=== PATIENT | female | born 1945 ===

== ENCOUNTER 2016-12-29 06:29 | Inpatient (IN) | payer MEDICARE, MEDICAID ==
[2016-12-29] MEDS ORDERED: Propofol 10 mg/ml Inj (20 ML) ONE (07:11)
[2016-12-29] MEDS ORDERED: Thrombin Topical 5,000 IU Spray Kit ONE (07:11)
[2016-12-29] MEDS ORDERED: Absorbable Gelatin Sponge Size 100 ONE (07:11)
[2016-12-29] MEDS ORDERED: Midazolam 2 MG/2 ML VIAL ONE (07:11)
[2016-12-29] MEDS ORDERED: Bacitracin Ointment 30 GM TUBE ONE (07:11)
[2016-12-29] MEDS ORDERED: ePHEDrine 50 mg/ml Inj ONE (07:11)
[2016-12-29] MEDS ORDERED: Succinylcholine 200 mg/10 ml Inj IV ONE (07:12)
[2016-12-29] MEDS ORDERED: Rocuronium 10 mg/ml (5 ml) ONE ×2 (07:12→09:41)
[2016-12-29 07:34] VITALS: BMI 29.2
[2016-12-29] MEDS ORDERED: Ropivacaine 0.5% 30ML IV ONE ×2 (07:48→07:59)
[2016-12-29] MEDS ORDERED: Lactated Ringer's 1,000 ML IV ONE ×2 (08:05→10:18)
[2016-12-29] MEDS ORDERED: Dexamethasone 4 mg/1 ml ONE (08:23)
[2016-12-29] MEDS ORDERED: Sevoflurane - Inhalation Anesthetic Liq (250 ml) ONE (08:50)
[2016-12-29] MEDS ORDERED: Neostigmine Methylsulfate 3mg/3ml Syringe IV ONE (09:52)
[2016-12-29] MEDS ORDERED: Desflurane Inhalation Anesthetic Liq (240 ml) ONE (10:30)
--- NOTE | 2016-12-29 10:57 | PCM.SURG1 ---
Surgeon's Initial Post Op Note - Surgeon's Notes Surgeon: Dr. Kat Lab Rep: Dr. Avani Gonzalez Type of Anesthesia: General Mask Anesthesia Administered By: Dr. Leyva Pre-Operative Diagnosis: Inflammatory arthritis of Left knee with cyst, anterior and posterior contracturte, lateral contracture Operative Findings: Total knee replacement from [facility]. 2-0, 3-0 vicryl, skin jak, drain Post-Operative Diagnosis: same Operation Performed: Left total knee replacement arthroplasty, curettage and bone graft, anterior and posterior capsule release, lateral patellar ligament release Specimen/Specimens Removed: none Estimated Blood Loss: EBL {In ML}: 35 Blood Products Given: N/A Drains Used: Wes Chacon Post-Op Condition: Good Date of Surgery/Procedure: 12/29/16 Time of Surgery/Procedure: 08:50
--- NOTE | 2016-12-29 11:07 | PCM.ANESB3 ---
Femoral Nerve Block - Femoral Nerve Block Date of Procedure: 12/29/16 Anesthesiologist: Autumn Pre-Procedure Diagnosis: Left Knee OA Post-Procedure Diagnosis: Left Knee OA Procedure Performed: Femoral Nerve Block Left - Procedure Femoral Nerve Block: The procedure was explained to the patient that it is for the post-operative pain management. Consent was obtained after a thorough discussion with the patient regarding the benefits and possible complications of local anesthetic block of the femoral nerve at the inguinal crease area. The patient was brought to the operating room and standard monitors were applied. Time-out was held with the circulating nurse to confirm the correct surgery and the appropriate block. After applying oxygen by nasal cannula and administering IV Sedation, patient was placed in supine position with fully extended lower extremities and the groin exposed. The femoral artery was then carefully palpated. The ultrasound transducer was then applied to this area in the transverse plane and the femoral nerve was visualized lateral to the femoral artery and underneath the fascia iliaca. After thorough identification, the inguinal crease area was prepped with Betadine solution three times and 1 % Lidocaine was injected subcutaneously for topical anesthesia. At this point, a #22 gauge Stimuplex 2-inch needle was inserted immediately lateral to the femoral artery pulse at the inguinal crease and advanced perpendicularly. The needle was inserted to the ultrasound transducer in-plane towards the femoral nerve in a [id number] direction. Needle advancement was performed carefully under direct ultrasound visualization. Nerve stimulator was used and twitch of the quadriceps muscle was obtained at current of 0.3 MA. After negative aspiration, 20 cc of 0.5% Ropivicaine was injected. Under ultrasound guidance the local anesthetics were observed spreading below fascia iliaca and around the femoral nerve. The needle was removed intact and sterile dressing was applied. The patient had stable vital signs, was conscious and in no apparent distress. The patient tolerated the femoral nerve block well with stable vital signs and was prepared for subsequent surgery.
[2016-12-29] MEDS ORDERED: Naloxone 0.4 mg/ml Inj (Adult) IVP PRN (11:10)
[2016-12-29] MEDS: HYDROmorphone 0.5 mg/0.5 ml ISec IVP PRN ×4 (11:20→12:35)
--- NOTE | 2016-12-29 12:46 | RAD ---
PROCEDURE: Left knee 12/29/2016. AP and cross-table lateral views of the left knee performed and compared with prior study dated HISTORY: Pain. COMPARISON: None. FINDINGS: BONES: Status post left total knee arthroplasty. Hardware appears intact and there is satisfactory alignment. . Expected unremarkable postoperative changes within the surrounding soft tissues including in situ drainage catheter. JOINTS: As above JOINT EFFUSION: Small suprapatellar joint effusion OTHER FINDINGS: IMPRESSION: Status post left total knee arthroplasty with satisfactory alignment and unremarkable expected surrounding postoperative changes as detailed above
[2016-12-29] MEDS: Lactated Ringer's 1,000 ML IV SCH ×2 (13:55→22:20)
[2016-12-29] MEDS: ceFAZolin 2 GM in Sodium Chloride 0.9% 100 ML IVPB SCH ×2 (17:00)
[2016-12-29] MEDS ORDERED: Patient's Own Med (Acetaminophen/Oxycodone Hydr [Percocet 10/325 Mg Tab] 1 TAB) PO PRN (18:14)
--- NOTE | 2016-12-29 19:55 | OP ---
PROCEDURE DATE: 12/29/2016 PREOPERATIVE DIAGNOSIS: Severe osteoarthritis of the left knee. POSTOPERATIVE DIAGNOSES: 1. Severe osteoarthritis of the left knee with evidence of a cyst in the lateral femoral condyle. 2. Tricompartmental osteoarthritis of the left knee. 3. Tricompartmental synovitis 4. Posterior capsular contracture. 5. Lateral patellar contracture. 6. Anterior and posterior synovitis. PROCEDURES: 1. Left total knee replacement arthroplasty. 2. Curettage and the autograft bone grafting bone cyst, lateral femoral condyle. 3. Anterior and posterior synovectomy. 4. Posterior capsular release. 5. Lateral patellar retinacular release. SURGEON: Caio Kat MD TERRAZZO JOURNEYMAN: Meghna Capone, certified registered nursing assistant to the director. SECOND MAINTENANCE DISPATCHER: Anup Gonzalez, first year podiatry resident. COMPLICATIONS: No complications. DRAINS: One Hemovac drain. OPERATIVE INDICATION: The patient is a patient who has had a primary total knee replacement and now has pain and restricted range of motion of the contralateral left knee. The patient presents with se joaquin discomfort, pain and restricted range of motion of the left knee. Possibility of mechanical lola lure, infection, thromboembolic disease, secondary or tertiary surgery is discussed. The patient has had a contralateral knee replacement arthroplasty, so she is well aware of the pros, cons, risks and benefits and insists the surgery be done as soon as possible. OPERATIVE PROCEDURE: After having obtained informed consent from the patient with a Skype log grader , after having identified side, site and procedure and a critical pause/timeout, after the satisfacto ry induction of the anesthetic, the patient correctly identified, in the supine position with all bon y prominences well padded, the left lower extremity is prepped and free draped in the usual fashion f or lower extremity surgery. Tourniquet had been applied but is not yet inflated. After exsanguinati ng the limb using a 6-inch Esmarch bandage, the tourniquet which had been applied is inflated to 350 mmHg. A midline straight 6-inch approach is made to the knee. The skin incision is carried down thr ough the skin and subcutaneous tissue. A medial arthrotomy is accomplished. The patella is everted. The knee is flexed. Dissection is carried around posteromedially to the direct head of the semimem branosis tendon. A medial and lateral meniscectomy are accomplished, anterior and posterior cruciate ligaments were excised. The initial osteotomy of the arthroplasty is accomplished on the tibial rosy e. At this point in time, computer navigation using accelerometer is accomplished. The anterior tibi al bracket is placed anteriorly. Varus, valgus, anterior and posterior supports are opened. The sty cezar is placed at the posterior insertion of the anterior cruciate ligament. At this point in time, t he offset is registered, the lateral malleolus is registered, the medial malleolus is registered, sloan us-valgus is set to 0 degrees, and anterior-posterior slope is set to 0 degrees. The tibial osteotom y is accomplished in neutral. The tibia is prepared to a #1 tibial component. Guides to rotation of the lateral aspect of the tibial condyle, mid malleolar axis, medial third of the tibial tuberosity. This having been accomplished, the proximal tibial having been prepared, attention is turned to the femur. The guidepin is placed above the intercondylar notch of the femur. The distal cutting guide is affixed and the accelerometer and the sensor placed. At this point in time the hip center is fou nd. Varus-valgus is set to 0 degrees with 0.5 degrees of flexion. This having been accomplished, th e distal depth of the cut is 9 mm. The distal femoral cutting guide is fixed in that position. The distal cut is accomplished. Anterior and posterior sizing is to a #3 femoral component. The 4-in-1 block is placed across the intercondylar axis for a #3 femoral component. The distal femoral block i s placed. Anterior and posterior femoral osteotomies were accomplished as well as chamfer cuts. At this point in time, again the posterior capsular contracture and lateral patellar contracture are not ed. The cuts having been accomplished, anterior and posterior synovectomy is now accomplished, and a t this point in time the posterior capsule is released. The lateral patellar retinaculum is released as well. There had been contractures of both the posterior capsule and the lateral patellar retinac ulum. At this point in time, trialing is accomplished with the #3 cemented femoral component, #1 jeancarlos ented tibial tray, and 15 mm polyethylene. Flexion-extension gap is found to be excellent. Attentio n is turned to the patella. The patella girth is measured at 28 mm. At this point in time, the hines lla girth is measured to 28 mm and the freehand patella osteotomy is accomplished. The patella is si zed to a 35 mm and reamed. Trialing is accomplished. The patella balance is found to be excellent. Flexion-extension balance is excellent. Patellar balance is excellent. The femur, tibia, and morelos la are prepared. The wound is thoroughly irrigated. The bone is irrigated with a waterpik, and the #3 cemented femoral component is applied, #1 cemented tibial tray and the 35 mm polyethylene with a 1 5 mm polyethylene. Flexion-extension gap is balanced. Excess cement is debrided. The tourniquet is deflated. Hemostasis controlled. Closure is in layers with #2 Quill and #1 Vicryl, 1/8 inch suctio n Hemovac drain of 0 Quill, jak for skin. Je Curtis compression dressing and knee immobilizer were applied. Postoperative x-rays reveal excellent position of the construct. Caio Kat MD cc: [id number] TT: 12/29/2016 19:55:07 cecilia
[2016-12-29] MEDS ORDERED: Alum-Mag Hydrox-Simethicone Susp (30 mL) PO PRN (20:31)
[2016-12-29] MEDS ORDERED: Patient's Own Med (Zolpidem [Ambien] 10 MG) PO SCH (22:00)
[2016-12-29] MEDS: Oxycodone/Acetaminophen 5/325 mg Tab PO PRN (22:16)
[2016-12-30] MEDS: ceFAZolin 2 GM in Sodium Chloride 0.9% 100 ML IVPB SCH (01:37)
[2016-12-30] MEDS: Lactated Ringer's 1,000 ML IV SCH ×3 (04:57→20:00)
[2016-12-30 06:56] LABS: BASO % 0.2 % (0.0-2.0); EOS % 0.2 % (0.0-4.0); HEMATOCRIT 27.7 % (34.0-47.0); LYMPH # 1.5 K/uL (1.0-4.3); LYMPH % 16.3 % (20.0-40.0); MEAN CORPUSCULAR HEMOGLOBIN 28.8 pg (27.0-31.0); MEAN CORPUSCULAR HGB CONC 33.8 g/dL (33.0-37.0); MEAN PLATELET VOLUME 9.4 fl (7.2-11.7); MONO # 1.1 K/uL (0.0-0.8); MONO % 11.9 % (0.0-10.0); NEUT # 6.5 K/uL (1.8-7.0); NEUT % 71.4 % (50.0-75.0); RED CELL DISTRIBUTION WIDTH 14.2 % (11.5-14.5); WHITE BLOOD COUNT 9.1 K/uL (4.8-10.8)
[2016-12-30 07:09] LABS: ALB/GLOB RATIO 1.3 (1.0-2.1); ALKALINE PHOSPHATASE 48 U/L (38-126); ALT/SGPT 26 U/L (9-52); AST/SGOT 22 U/L (14-36); BILIRUBIN,TOTAL 0.3 mg/dl (0.2-1.3); BLOOD UREA NITROGEN 8 mg/dl (7-17); CALCIUM 8.8 mg/dL (8.4-10.2); CARBON DIOXIDE 28 mmol/L (22-30); CHLORIDE 103 mmol/L (98-107); GFR AFRICAN-AMERICAN > 60; GLUCOSE,RANDOM 101 mg/dL (65-105); POTASSIUM 4.3 MMOL/L (3.6-5.0); SODIUM 140 mmol/l (132-148); TOTAL PROTEIN 5.7 G/DL (6.3-8.2)
--- NOTE | 2016-12-30 07:33 | CP.PCM.PN ---
Subjective - Date & Time of Evaluation Date of Evaluation: 12/30/16 Time of Evaluation: 07:30 - Subjective Subjective: S- pt with miinmla post op incisional discomfort Objective - Vital Signs/Intake and Output Vital Signs (last 24 hours): Temp Pulse Resp BP Pulse Ox 99 F 94 H 18 107/62 96 12/30/16 00:55 12/30/16 00:55 12/30/16 00:55 12/30/16 00:55 12/30/16 00:55 - Medications Medications: Current Medications Al Hydrox/Mg Hydrox/Simethicone (Maalox Plus 30 Ml) 30 ml PO Q4 PRN PRN Reason: Indigestion / Heartburn Last Admin: 12/29/16 22:16 Dose: 30 ml Aspirin (Ecotrin) 81 mg PO DAILY [facility] Calcium/Vitamin D (Oyster Shell Calcium/Vitamin D 500 Mg-200 Iu) 1 tab PO DAILY [facility] Clonazepam (Klonopin) 0.5 mg PO DAILY [facility] Docusate Sodium (Colace) 100 mg PO TID [facility] Enoxaparin Sodium (Lovenox) 40 mg SC DAILY [facility] PRN Reason: Protocol Ergocalciferol (Drisdol 50,000 Intl Units Cap) 1 cap PO QWK [facility] Ferrous Sulfate (Feosol) 325 mg PO DAILY [facility] Home Med (Tizanidine Hcl [Zanaflex]) 4 mg PO PRN PRN PRN Reason: pain. Hydromorphone HCl (Dilaudid 0.2 Mg/Ml Pet Ambassador) 0 mg IV PRN PRN; Protocol PRN Reason: Pain, moderate (4-7) Last Admin: 12/29/16 23:53 Dose: 6 mg Lactated Ringer's (Lactated Ringer's) 1,000 mls @ 125 mls/hr IV .Q8H [facility] Last Admin: 12/30/16 04:57 Dose: Not Given Naloxone HCl (Narcan) 0.1 mg IVP Q2M PRN PRN Reason: Opiate reversal Hfuld-8-Gaxu Ethyl Esters (Lovaza) 1 gm PO DAILY [facility] Oxybutynin Chloride (Ditropan Tab) 5 mg PO DAILY PRN PRN Reason: Urgent Urination Oxycodone/Acetaminophen (Percocet 5/325 Mg Tab) 1 tab PO Q4 PRN PRN Reason: Pain, moderate (4-7) Stop: 01/01/17 20:32 Last Admin: 12/29/16 22:16 Dose: 1 tab Pantoprazole Sodium (Protonix Ec Tab) 40 mg PO DAILY [facility] Rivastigmine (Exelon 9.5 Mg/24 Hr Patch) 1 patch TD DAILY [facility] Zolpidem Tartrate (Ambien) 5 mg PO HS [facility] Last Admin: 12/29/16 22:16 Dose: 5 mg - Labs Labs: 12/30/16 05:20 12/30/16 05:20 - Additional Findings Additional findings: ObjectiveMusculoskeletal stance/gait- defrred Knee dressing dry and intact N/CV intact no gross deficits orthopedically stable Assessment and Plan - Assessment and Plan (Free Text) Assessment: A- s/p successful TKR (R) P- full weight bearing CPM
[2016-12-30] MEDS ORDERED: Ergocalciferol 50,000 Intl Units Cap PO SCH (09:00)
[2016-12-30] MEDS: Oxycodone/Acetaminophen 5/325 mg Tab PO PRN ×3 (09:03→17:53)
[2016-12-30] MEDS: Pantoprazole 40 mg EC Tab PO SCH (09:36)
[2016-12-30] MEDS: Omega-3-Acid Ethyl Esters 1 GM Cap PO SCH (09:37)
[2016-12-30] MEDS: Enoxaparin 40 mg Syringe SC SCH (09:37)
[2016-12-30] MEDS: Calcium-Vit D 500 mg-200 Units Tab UD PO SCH (09:37)
[2016-12-30] MEDS ORDERED: Oxycodone/Acetaminophen 5/325 mg Tab PO PRN (09:46)
--- NOTE | 2016-12-30 14:35 | CP.PCM.PN ---
Objective - Vital Signs/Intake and Output Vital Signs (last 24 hours): Temp Pulse Resp BP Pulse Ox 98.8 F 82 20 116/78 100 12/30/16 08:14 12/30/16 08:14 12/30/16 08:14 12/30/16 08:14 12/30/16 08:14 - Medications Medications: Current Medications Al Hydrox/Mg Hydrox/Simethicone (Maalox Plus 30 Ml) 30 ml PO Q4 PRN PRN Reason: Indigestion / Heartburn Last Admin: 12/29/16 22:16 Dose: 30 ml Aspirin (Ecotrin) 81 mg PO DAILY [facility] Last Admin: 12/30/16 09:36 Dose: 81 mg Calcium/Vitamin D (Oyster Shell Calcium/Vitamin D 500 Mg-200 Iu) 1 tab PO DAILY [facility] Last Admin: 12/30/16 09:37 Dose: 1 tab Clonazepam (Klonopin) 0.5 mg PO DAILY [facility] Last Admin: 12/30/16 09:41 Dose: 0.5 mg Docusate Sodium (Colace) 100 mg PO TID [facility] Last Admin: 12/30/16 13:03 Dose: 100 mg Enoxaparin Sodium (Lovenox) 40 mg SC DAILY [facility] PRN Reason: Protocol Last Admin: 12/30/16 09:37 Dose: 40 mg Ergocalciferol (Drisdol 50,000 Intl Units Cap) 1 cap PO QWK [facility] Ferrous Sulfate (Feosol) 325 mg PO DAILY [facility] Last Admin: 12/30/16 09:37 Dose: 325 mg Lactated Ringer's (Lactated Ringer's) 1,000 mls @ 125 mls/hr IV .Q8H [facility] Last Admin: 12/30/16 12:56 Dose: Not Given Naloxone HCl (Narcan) 0.1 mg IVP Q2M PRN PRN Reason: Opiate reversal Kpjxw-9-Ffrp Ethyl Esters (Lovaza) 1 gm PO DAILY [facility] Last Admin: 12/30/16 09:37 Dose: 1 gm Oxybutynin Chloride (Ditropan Tab) 5 mg PO BID [facility] Oxycodone/Acetaminophen (Percocet 5/325 Mg Tab) 2 tab PO Q4 PRN PRN Reason: Pain, severe (8-10) Stop: 01/02/17 09:47 Last Admin: 12/30/16 13:21 Dose: 2 tab Oxycodone/Acetaminophen (Percocet 5/325 Mg Tab) 1 tab PO Q4 PRN PRN Reason: Pain, moderate (4-7) Stop: 01/01/17 20:32 Pantoprazole Sodium (Protonix Ec Tab) 40 mg PO DAILY [facility] Last Admin: 12/30/16 09:36 Dose: 40 mg Rivastigmine (Exelon 9.5 Mg/24 Hr Patch) 1 patch TD DAILY [facility] Last Admin: 12/30/16 09:37 Dose: 1 patch Tizanidine HCl (Zanaflex) 4 mg PO TID [facility] Last Admin: 12/30/16 13:03 Dose: 4 mg Zolpidem Tartrate (Ambien) 5 mg PO HS [facility] Last Admin: 12/29/16 22:16 Dose: 5 mg - Labs Labs: 12/30/16 05:20 12/30/16 05:20
--- NOTE | 2016-12-30 15:16 | CP.PCM.HP ---
History of Present Illness - History of Present Illness History of Present Illness: S/P L TKR POD # 1 71 y/o F, admitted to [facility] [place] to have L TKR Arthrosplasty on 12/29/16 in AM. On admission Pt was c/o of moderate to severe of L knee pain, constant, intensity 8:10 with no relief, associated to severe O/A L knee with cyst in the lateral femoral condyle. Worsening symptoms: Muscle weakness, Hx of O/A. Pt denied: Fever, chills, n/v/d, abdominal pain, CP,palpitation, SOB, cough, sick contact. PMHx: R TKR 08/2016, HTN, O/A, chronic Back pain, muscles weakness, Gastritis , Reflux, Dyslipidemia, Anxiety, depression. Knee X-Ray shows: S/P L knee Arthrosplasty with satisfactory alignment. Present on Admission - Present on Admission Any Indicators Present on Admission: No Review of Systems - Constitutional Constitutional: Weakness - EENT Eyes: Other (negative) Ears: Other (negative) Nose/Mouth/Throat: Other (negative) - Cardiovascular Cardiovascular: Other (negative) - Respiratory Respiratory: Other (negative) - Gastrointestinal Gastrointestinal: Dyspepsia - Genitourinary Genitourinary: Other (negative) - Musculoskeletal Musculoskeletal: Arthralgias, Back Pain, Muscle Weakness, Other (L knee pain) - Integumentary Integumentary: Other (negative) - Neurological Neurological: Other (negative) - Psychiatric Psychiatric: Anxiety, Depression - Endocrine Endocrine: Other (negative) - Hematologic/Lymphatic Hematologic: Other (negative) Past Patient History - Infectious Disease Hx of Infectious Diseases: None - Past Medical History & Family History Past Medical History?: Yes Pertinent Family History: Unknown - Past Social History Smoking Status: Never Smoked Alcohol: None Drugs: Denies Home Situation {Lives}: Alone - CARDIAC Hx Cardiac Disorders: Yes Hx Angina: No Hx Congestive Heart Failure: No Hx Heart Attack: No Hx Hypercholesterolemia: No Hx Hypertension: No Hx Pacemaker: No Hx Peripheral Vascular Disease: No - PULMONARY Hx Respiratory Disorders: No Hx Asthma: No Hx Chronic Obstructive Pulmonary Disease (COPD): No - NEUROLOGICAL Hx Neurological Disorder: Yes Hx Dementia: Yes Hx Seizures: No - HEENT Hx HEENT Problems: No - RENAL Hx Chronic Kidney Disease: No - ENDOCRINE/METABOLIC Hx Endocrine Disorders: No - HEMATOLOGICAL/ONCOLOGICAL Hx Blood Disorders: No Hx AIDS: No Hx Human Immunodeficiency Virus (HIV): No - INTEGUMENTARY Hx Dermatological Problems: No - MUSCULOSKELETAL/RHEUMATOLOGICAL Hx Musculoskeletal Disorders: Yes Hx Arthritis: Yes Hx Back Pain: Yes Hx Falls: No Hx Osteoarthritis: Yes Hx Osteoporosis: Yes Hx Unsteady Gait: Yes (pt uses walker) Other/Comment: MUSCLE WEAKNESS .LIMITED JOINT MOTION - GASTROINTESTINAL Hx Gastrointestinal Disorders: Yes Hx Gastritis: Yes Hx Gastroesophageal Reflux: Yes - GENITOURINARY/GYNECOLOGICAL Hx Genitourinary Disorders: No - PSYCHIATRIC Hx Psychophysiologic Disorder: Yes (Insomnia) Hx Emotional Abuse: No Hx Physical Abuse: No - SURGICAL HISTORY Hx Surgeries: Yes Hx Cataract Extraction: Yes Hx Cardiac Catheterization: No Hx Coronary Artery Bypass Graft: No Hx Eye Surgery: Yes (O.U) Hx Hysterectomy: Yes Hx Joint Replacement: Yes (RIGHT TKR 09/22/16) Hx Musculoskeletal Surgery: Yes (Left knee sx) Hx Orthopedic Surgery: Yes (RTKR) Other/Comment: Hx cyst excision left forearm. RTKR - ANESTHESIA Hx Anesthesia: Yes Hx Anesthesia Reactions: No Hx Malignant Hyperthermia: No Has any member of the family had a problem w/ anesthesia?: No Meds Allergies/Adverse Reactions: Allergies Allergy/AdvReac Type Severity Reaction Status Date / Time No Known Allergies Allergy Verified 12/08/16 08:12 Physical Exam - Constitutional Appears: No Acute Distress - Head Exam Head Exam: NORMAL INSPECTION - Eye Exam Eye Exam: PERRL - ENT Exam ENT Exam: Normal Oropharynx - Neck Exam Neck exam: Positive for: Normal Inspection - Respiratory Exam Respiratory Exam: NORMAL BREATHING PATTERN - Cardiovascular Exam Cardiovascular Exam: REGULAR RHYTHM - GI/Abdominal Exam GI & Abdominal Exam: Normal Bowel Sounds, Soft - Extremities Exam Additional comments: L knee s/p TKR POD # 1, L knee dressing with serosanguineous drainage. - Back Exam Back exam: NORMAL INSPECTION - Neurological Exam Neurological exam: Alert, Oriented x3 - Psychiatric Exam Psychiatric exam: Anxious, Depressed - Skin Skin Exam: Warm Results - Vital Signs Recent Vital Signs: Last Vital Signs Temp 98.8 F 12/30/16 08:14 Pulse 82 12/30/16 08:14 Resp 20 12/30/16 08:14 BP 116/78 12/30/16 08:14 Pulse Ox 100 12/30/16 08:14 reviewed J.P. - Labs Result Diagrams: 12/31/16 05:25 12/31/16 05:25 Labs: Laboratory Results - last 24 hr 12/30/16 12/30/16 05:20 05:20 WBC 9.1 RBC 3.26 L Hgb 9.4 L D Hct 27.7 L MCV 85.0 MCH 28.8 MCHC 33.8 RDW 14.2 Plt Count 192 MPV 9.4 Neut % (Auto) 71.4 Lymph % (Auto) 16.3 L Seminole % (Auto) 11.9 H Eos % (Auto) 0.2 Baso % (Auto) 0.2 Neut # 6.5 Lymph # 1.5 Seminole # 1.1 H Eos # 0.0 Baso # 0.0 Sodium 140 Potassium 4.3 Chloride 103 Carbon Dioxide 28 Anion Gap 13 BUN 8 Creatinine 0.4 L Est GFR ( Amer) > 60 Est GFR (Non-Af Amer) > 60 Random Glucose 101 Calcium 8.8 Total Bilirubin 0.3 AST 22 ALT 26 Alkaline Phosphatase 48 Total Protein 5.7 L Albumin 3.3 L D Globulin 2.5 Albumin/Globulin Ratio 1.3 reviewed j.P. - Impressions Impression: L knee X-Ray Reviewed J.P. Assessment & Plan (1) Status post total knee replacement, left Status: Acute Priority: High (2) Postoperative pain, acute, knee Status: Acute (3) Esophageal reflux Status: Acute (4) HLD (hyperlipidemia) Status: Chronic (5) Osteoporosis Status: Chronic (6) Anxious depression Status: Chronic (7) DVT prophylaxis Status: Acute (8) Anemia Status: Acute - Assessment and Plan (Free Text) Plan: Continue Dilaudid,Lovenox, Protonix and rest of tx. - Date & Time Date: 12/30/16 Time: 10:00
[2016-12-31] MEDS: Lactated Ringer's 1,000 ML IV SCH (04:05)
[2016-12-31 07:01] LABS: HEMATOCRIT 27.6 % (34.0-47.0); MEAN CELL VOLUME 85.8 fl (81.0-99.0); MEAN CORPUSCULAR HEMOGLOBIN 27.3 pg (27.0-31.0); MEAN CORPUSCULAR HGB CONC 31.8 g/dL (33.0-37.0); RED CELL DISTRIBUTION WIDTH 14.8 % (11.5-14.5); WHITE BLOOD COUNT 12.6 K/uL (4.8-10.8)
[2016-12-31 07:02] LABS: BLOOD UREA NITROGEN 9 mg/dl (7-17); CALCIUM 8.9 mg/dL (8.4-10.2); CARBON DIOXIDE 28 mmol/L (22-30); CHLORIDE 101 mmol/L (98-107); GFR AFRICAN-AMERICAN > 60; GLUCOSE,RANDOM 116 mg/dL (65-105); SODIUM 138 mmol/l (132-148)
--- NOTE | 2016-12-31 07:20 | PQF GENQUE ---
This form is a permanent part of the medical record 12/31/16 Dr. Sanchez, Would you please clarify if there is an associated diagnosis to go along with the following lab findings: H&H 9.4/27.7 , MCV and MCH normal postoperative. Received 1,100 ml intraoperative. EBL 35 cc. Treatment includes IVF. Clarification of your documentation is requested to better reflect the severity of illness and intensity of treatment of your patient. PHYSICIAN'S RESPONSE Based on your medical judgment of the clinical indicators outlined above please clarify the following: [] Practitioner response [] If unable to determine, please check the box, sign and date. Present On Admission (POA) Indicator: [] Present at the time of admission [] Not present at the time of admission [] Clinically Undetermined In responding to this query, please exercise your independent professional judgment. The fact that a question is asked does not imply that any particular answer is desired or expected. Thank you for your clarification on this documentation. If you have any questions please call: extension [phone] * Thank you, Lisa Guardado RN [facility]
[2016-12-31] MEDS: Omega-3-Acid Ethyl Esters 1 GM Cap PO SCH (09:13)
[2016-12-31] MEDS: Calcium-Vit D 500 mg-200 Units Tab UD PO SCH (09:14)
[2016-12-31] MEDS: Enoxaparin 40 mg Syringe SC SCH (09:14)
[2016-12-31] MEDS: Pantoprazole 40 mg EC Tab PO SCH (09:15)
[2016-12-31] MEDS: Oxycodone/Acetaminophen 5/325 mg Tab PO PRN ×2 (10:45→21:01)
--- NOTE | 2016-12-31 14:55 | CP.PCM.PN ---
Subjective - Date & Time of Evaluation Date of Evaluation: 12/31/16 Time of Evaluation: 12:25 - Subjective Subjective: S/P L TKR Pt S/P L TKR, pain L knee. Objective - Vital Signs/Intake and Output Vital Signs (last 24 hours): Temp Pulse Resp BP Pulse Ox 99.1 F 91 H 20 124/64 94 L 12/31/16 08:05 12/31/16 08:05 12/31/16 08:05 12/31/16 08:05 12/31/16 08:05 - Medications Medications: Current Medications Al Hydrox/Mg Hydrox/Simethicone (Maalox Plus 30 Ml) 30 ml PO Q4 PRN PRN Reason: Indigestion / Heartburn Last Admin: 12/29/16 22:16 Dose: 30 ml Aspirin (Ecotrin) 81 mg PO DAILY [facility] Last Admin: 12/31/16 09:12 Dose: 81 mg Calcium/Vitamin D (Oyster Shell Calcium/Vitamin D 500 Mg-200 Iu) 1 tab PO DAILY [facility] Last Admin: 12/31/16 09:14 Dose: 1 tab Clonazepam (Klonopin) 0.5 mg PO DAILY [facility] Last Admin: 12/31/16 09:22 Dose: 0.5 mg Docusate Sodium (Colace) 100 mg PO TID [facility] Last Admin: 12/31/16 09:06 Dose: 100 mg Enoxaparin Sodium (Lovenox) 40 mg SC DAILY [facility] PRN Reason: Protocol Last Admin: 12/31/16 09:14 Dose: 40 mg Ergocalciferol (Drisdol 50,000 Intl Units Cap) 1 cap PO QWK [facility] Ferrous Sulfate (Feosol) 325 mg PO BID [facility] Hydromorphone HCl (Dilaudid) 1 mg IVP Q4 PRN PRN Reason: Pain, severe (8-10) Last Admin: 12/31/16 09:24 Dose: 1 mg Lactated Ringer's (Lactated Ringer's) 1,000 mls @ 125 mls/hr IV .Q8H [facility] Last Admin: 12/31/16 04:05 Dose: Not Given Naloxone HCl (Narcan) 0.1 mg IVP Q2M PRN PRN Reason: Opiate reversal Djusk-5-Izgw Ethyl Esters (Lovaza) 1 gm PO DAILY [facility] Last Admin: 12/31/16 09:13 Dose: 1 gm Oxybutynin Chloride (Ditropan Tab) 5 mg PO BID [facility] Last Admin: 12/31/16 09:12 Dose: 5 mg Oxycodone/Acetaminophen (Percocet 5/325 Mg Tab) 2 tab PO Q4 PRN PRN Reason: Pain, severe (8-10) Stop: 01/02/17 09:47 Last Admin: 12/31/16 10:45 Dose: 2 tab Oxycodone/Acetaminophen (Percocet 5/325 Mg Tab) 1 tab PO Q4 PRN PRN Reason: Pain, moderate (4-7) Stop: 01/01/17 20:32 Pantoprazole Sodium (Protonix Ec Tab) 40 mg PO DAILY [facility] Last Admin: 12/31/16 09:15 Dose: 40 mg Rivastigmine (Exelon 9.5 Mg/24 Hr Patch) 1 patch TD DAILY [facility] Last Admin: 12/31/16 09:13 Dose: 1 patch Tizanidine HCl (Zanaflex) 4 mg PO TID [facility] Last Admin: 12/31/16 09:15 Dose: 4 mg Zolpidem Tartrate (Ambien) 5 mg PO HS [facility] Last Admin: 12/30/16 22:50 Dose: 5 mg - Labs Labs: 12/31/16 05:25 12/31/16 05:25 - Constitutional Appears: No Acute Distress - Head Exam Head Exam: NORMAL INSPECTION - Eye Exam Eye Exam: PERRL - ENT Exam ENT Exam: Normal Oropharynx - Neck Exam Neck Exam: Normal Inspection - Respiratory Exam Respiratory Exam: NORMAL BREATHING PATTERN - Cardiovascular Exam Cardiovascular Exam: REGULAR RHYTHM - GI/Abdominal Exam GI & Abdominal Exam: Soft, Normal Bowel Sounds - Extremities Exam Additional comments: S/P L TkR , dressing in place no drainage , tenderness to palpation - Back Exam Back Exam: NORMAL INSPECTION - Neurological Exam Neurological Exam: Alert, Oriented x3 - Psychiatric Exam Psychiatric exam: Anxious, Depressed - Skin Skin Exam: Warm Assessment and Plan (1) Status post total knee replacement, left Status: Acute (2) Postoperative pain, acute, knee Status: Acute (3) Esophageal reflux Status: Acute (4) HLD (hyperlipidemia) Status: Chronic (5) Osteoporosis Status: Chronic (6) Anxious depression Status: Chronic (7) DVT prophylaxis Status: Acute (8) Anemia Status: Acute - Assessment and Plan (Free Text) Plan: Continue Dilaudid, Percocet, Lovenox and rest of Tx , f/u Hgb
[2017-01-01 06:52] LABS: HEMATOCRIT 23.9 % (34.0-47.0); MEAN CELL VOLUME 84.9 fl (81.0-99.0); MEAN CORPUSCULAR HEMOGLOBIN 28.5 pg (27.0-31.0); MEAN CORPUSCULAR HGB CONC 33.6 g/dL (33.0-37.0); RED CELL DISTRIBUTION WIDTH 14.6 % (11.5-14.5); WHITE BLOOD COUNT 10.8 K/uL (4.8-10.8)
[2017-01-01] MEDS ORDERED: EPOETIN ALFA 10,000 UNIT/ML ML SC ONE (09:30)
[2017-01-01] MEDS ORDERED: Sodium Chloride 0.9% 1,000 ML IV SCH (09:30)
[2017-01-01] MEDS: Enoxaparin 40 mg Syringe SC SCH (10:26)
[2017-01-01] MEDS: Omega-3-Acid Ethyl Esters 1 GM Cap PO SCH (10:26)
[2017-01-01] MEDS: Calcium-Vit D 500 mg-200 Units Tab UD PO SCH (10:27)
[2017-01-01] MEDS: Pantoprazole 40 mg EC Tab PO SCH (10:27)
[2017-01-01 12:04] LABS: HEMATOCRIT 22.6 % (34.0-47.0); MEAN CELL VOLUME 84.7 fl (81.0-99.0); MEAN CORPUSCULAR HEMOGLOBIN 28.7 pg (27.0-31.0); MEAN CORPUSCULAR HGB CONC 33.9 g/dL (33.0-37.0); RED CELL DISTRIBUTION WIDTH 14.3 % (11.5-14.5)
[2017-01-01 12:13] LABS: BLOOD UREA NITROGEN 11 mg/dl (7-17); CALCIUM 8.4 mg/dL (8.4-10.2); CARBON DIOXIDE 28 mmol/L (22-30); CHLORIDE 102 mmol/L (98-107); GFR AFRICAN-AMERICAN > 60; GLUCOSE,RANDOM 117 mg/dL (65-105); SODIUM 136 mmol/l (132-148)
[2017-01-01 12:30] LABS: IRON 10 ug/dL (37-170)
[2017-01-01] MEDS ORDERED: Benzocaine/Menthol (Cepacol) Lozenge PO PRN (15:30)
--- NOTE | 2017-01-01 17:11 | CP.PCM.PN ---
Subjective - Date & Time of Evaluation Date of Evaluation: 01/01/17 Time of Evaluation: 12:30 - Subjective Subjective: F/U L TKR Less pain L knee Objective - Vital Signs/Intake and Output Vital Signs (last 24 hours): Temp Pulse Resp BP Pulse Ox 98.5 F 67 20 84/56 L 97 01/01/17 12:47 01/01/17 12:47 01/01/17 12:47 01/01/17 12:47 01/01/17 12:47 - Medications Medications: Current Medications Al Hydrox/Mg Hydrox/Simethicone (Maalox Plus 30 Ml) 30 ml PO Q4 PRN PRN Reason: Indigestion / Heartburn Last Admin: 12/29/16 22:16 Dose: 30 ml Aspirin (Ecotrin) 81 mg PO DAILY [facility] Last Admin: 01/01/17 10:26 Dose: 81 mg Benzocaine/Menthol (Cepacol Sore Throat) 1 matt PO Q4 PRN PRN Reason: Sore Throat Last Admin: 01/01/17 16:33 Dose: 1 matt Calcium/Vitamin D (Oyster Shell Calcium/Vitamin D 500 Mg-200 Iu) 1 tab PO DAILY [facility] Last Admin: 01/01/17 10:27 Dose: 1 tab Clonazepam (Klonopin) 0.5 mg PO DAILY [facility] Last Admin: 01/01/17 10:37 Dose: 0.5 mg Docusate Sodium (Colace) 100 mg PO TID [facility] Last Admin: 01/01/17 16:41 Dose: 100 mg Enoxaparin Sodium (Lovenox) 40 mg SC DAILY [facility] PRN Reason: Protocol Last Admin: 01/01/17 10:26 Dose: 40 mg Epoetin Osito (Procrit) 10,000 unit SC MWF [facility] Ergocalciferol (Drisdol 50,000 Intl Units Cap) 1 cap PO QWK [facility] Last Admin: 01/01/17 10:27 Dose: 1 cap Ferrous Sulfate (Feosol) 325 mg PO BID [facility] Last Admin: 01/01/17 16:42 Dose: 325 mg Hydromorphone HCl (Dilaudid) 1 mg IVP Q4 PRN PRN Reason: Pain, severe (8-10) Last Admin: 12/31/16 16:48 Dose: 1 mg Sodium Chloride (Sodium Chloride 0.9%) 1,000 mls @ 75 mls/hr IV .[id number] [facility] Stop: 01/02/17 09:30 Last Admin: 01/01/17 10:04 Dose: 75 mls/hr Naloxone HCl (Narcan) 0.1 mg IVP Q2M PRN PRN Reason: Opiate reversal [id number] Ethyl Esters (Lovaza) 1 gm PO DAILY [facility] Last Admin: 01/01/17 10:26 Dose: 1 gm Oxybutynin Chloride (Ditropan Tab) 5 mg PO BID [facility] Last Admin: 01/01/17 16:42 Dose: 5 mg Oxycodone/Acetaminophen (Percocet 5/325 Mg Tab) 2 tab PO Q4 PRN PRN Reason: Pain, severe (8-10) Stop: 01/02/17 09:47 Last Admin: 12/31/16 10:45 Dose: 2 tab Oxycodone/Acetaminophen (Percocet 5/325 Mg Tab) 1 tab PO Q4 PRN PRN Reason: Pain, moderate (4-7) Stop: 01/01/17 20:32 Last Admin: 12/31/16 21:01 Dose: 1 tab Pantoprazole Sodium (Protonix Ec Tab) 40 mg PO DAILY [facility] Last Admin: 01/01/17 10:27 Dose: 40 mg Rivastigmine (Exelon 9.5 Mg/24 Hr Patch) 1 patch TD DAILY [facility] Last Admin: 01/01/17 10:25 Dose: 1 patch Tizanidine HCl (Zanaflex) 4 mg PO TID [facility] Last Admin: 01/01/17 13:59 Dose: 4 mg Zolpidem Tartrate (Ambien) 5 mg PO HS [facility] Last Admin: 12/31/16 21:02 Dose: 5 mg - Labs Labs: 01/01/17 11:30 01/01/17 11:30 - Constitutional Appears: No Acute Distress - Head Exam Head Exam: NORMAL INSPECTION - Eye Exam Eye Exam: PERRL - ENT Exam ENT Exam: Normal Oropharynx - Neck Exam Neck Exam: Normal Inspection - Respiratory Exam Respiratory Exam: NORMAL BREATHING PATTERN - Cardiovascular Exam Cardiovascular Exam: REGULAR RHYTHM - GI/Abdominal Exam GI & Abdominal Exam: Soft, Normal Bowel Sounds - Extremities Exam Additional comments: S/P L TKR, dressing in place, no drainage, tenderness on palpation , neuromuscular status distal good - Back Exam Back Exam: NORMAL INSPECTION - Neurological Exam Neurological Exam: Altered, Oriented x3 - Psychiatric Exam Psychiatric exam: Anxious, Depressed - Skin Skin Exam: Warm Assessment and Plan (1) Status post total knee replacement, left Status: Acute (2) Postoperative pain, acute, knee Status: Acute (3) Esophageal reflux Status: Acute (4) HLD (hyperlipidemia) Status: Chronic (5) Osteoporosis Status: Chronic (6) Anxious depression Status: Chronic (7) DVT prophylaxis Status: Acute (8) Anemia Status: Acute - Assessment and Plan (Free Text) Plan: Hgb 7.7 , to have transfusion 2 U PRBC , Epogen , Feosol , continue Dilaudid , Percocet , PT
[2017-01-01 18:29] LABS: FOLATE 7.9 ng/mL
[2017-01-01] MEDS: Oxycodone/Acetaminophen 5/325 mg Tab PO PRN (19:34)
[2017-01-01] MEDS ORDERED: HYDROmorphone 0.5 mg/0.5 ml ISec IVP PRN (21:41)
[2017-01-02] MEDS: Oxycodone/Acetaminophen 5/325 mg Tab PO PRN ×3 (00:20→12:14)
[2017-01-02 04:27] VITALS: RESP 20; O2SAT 98
[2017-01-02 08:33] VITALS: BP 117/69; PULSE 70; TEMP 99
[2017-01-02] MEDS: Omega-3-Acid Ethyl Esters 1 GM Cap PO SCH (08:59)
[2017-01-02] MEDS: Enoxaparin 40 mg Syringe SC SCH (08:59)
[2017-01-02] MEDS: Calcium-Vit D 500 mg-200 Units Tab UD PO SCH (09:00)
[2017-01-02] MEDS: Pantoprazole 40 mg EC Tab PO SCH (09:00)
[2017-01-02] MEDS ORDERED: EPOETIN ALFA 10,000 UNIT/ML ML SC SCH (09:00)
[2017-01-02 09:08] LABS: HEMATOCRIT 33.9 % (34.0-47.0); MEAN CELL VOLUME 86.4 fl (81.0-99.0); MEAN CORPUSCULAR HEMOGLOBIN 28.7 pg (27.0-31.0); MEAN CORPUSCULAR HGB CONC 33.2 g/dL (33.0-37.0); RED CELL DISTRIBUTION WIDTH 15.2 % (11.5-14.5); WHITE BLOOD COUNT 9.1 K/uL (4.8-10.8)
[2017-01-02 09:34] LABS: BLOOD UREA NITROGEN 7 mg/dl (7-17); CALCIUM 8.6 mg/dL (8.4-10.2); CARBON DIOXIDE 25 mmol/L (22-30); CHLORIDE 107 mmol/L (98-107); GFR AFRICAN-AMERICAN > 60; GLUCOSE,RANDOM 120 mg/dL (65-105); POTASSIUM 3.3 MMOL/L (3.6-5.0); SODIUM 141 mmol/l (132-148)
[2017-01-02] MEDS ORDERED: Potassium Chloride 20 mEq ER Tab PO ONE (11:30)
--- NOTE | 2017-01-02 14:51 | CP.PCM.PN ---
Subjective - Date & Time of Evaluation Date of Evaluation: 01/02/17 Time of Evaluation: 12:00 - Subjective Subjective: F/U L TKR Less pain in L knee, with the help of Therapist and walker ambulating back to the bathroom. Objective - Vital Signs/Intake and Output Vital Signs (last 24 hours): Temp Pulse Resp BP Pulse Ox 99 F 70 20 117/69 98 01/02/17 08:32 01/02/17 08:32 01/02/17 08:32 01/02/17 08:32 01/02/17 08:32 - Medications Medications: Current Medications Al Hydrox/Mg Hydrox/Simethicone (Maalox Plus 30 Ml) 30 ml PO Q4 PRN PRN Reason: Indigestion / Heartburn Last Admin: 12/29/16 22:16 Dose: 30 ml Aspirin (Ecotrin) 81 mg PO DAILY [facility] Last Admin: 01/02/17 08:59 Dose: 81 mg Benzocaine/Menthol (Cepacol Sore Throat) 1 matt PO Q4 PRN PRN Reason: Sore Throat Last Admin: 01/01/17 16:33 Dose: 1 matt Calcium/Vitamin D (Oyster Shell Calcium/Vitamin D 500 Mg-200 Iu) 1 tab PO DAILY [facility] Last Admin: 01/02/17 09:00 Dose: 1 tab Clonazepam (Klonopin) 0.5 mg PO DAILY [facility] Last Admin: 01/02/17 09:04 Dose: 0.5 mg Docusate Sodium (Colace) 100 mg PO TID [facility] Last Admin: 01/02/17 12:13 Dose: 100 mg Enoxaparin Sodium (Lovenox) 40 mg SC DAILY [facility] PRN Reason: Protocol Last Admin: 01/02/17 08:59 Dose: 40 mg Epoetin Osito (Procrit) 10,000 unit SC MWF [facility] Last Admin: 01/02/17 09:55 Dose: 10,000 unit Ergocalciferol (Drisdol 50,000 Intl Units Cap) 1 cap PO QWK [facility] Last Admin: 01/01/17 10:27 Dose: 1 cap Ferrous Sulfate (Feosol) 325 mg PO BID [facility] Last Admin: 01/02/17 08:59 Dose: 325 mg Hydromorphone HCl (Dilaudid) 1 mg IVP Q4 PRN PRN Reason: Pain, severe (8-10) Lactulose (Enulose) 20 gm PO DAILY PRN PRN Reason: Constipation Naloxone HCl (Narcan) 0.1 mg IVP Q2M PRN PRN Reason: Opiate reversal Qalas-4-Oeyq Ethyl Esters (Lovaza) 1 gm PO DAILY [facility] Last Admin: 01/02/17 08:59 Dose: 1 gm Oxybutynin Chloride (Ditropan Tab) 5 mg PO BID [facility] Last Admin: 01/02/17 08:58 Dose: 5 mg Oxycodone/Acetaminophen (Percocet 5/325 Mg Tab) 1 tab PO Q4 PRN PRN Reason: Pain, moderate (4-7) Stop: 01/04/17 21:40 Last Admin: 01/02/17 12:14 Dose: 1 tab Pantoprazole Sodium (Protonix Ec Tab) 40 mg PO DAILY [facility] Last Admin: 01/02/17 09:00 Dose: 40 mg Rivastigmine (Exelon 9.5 Mg/24 Hr Patch) 1 patch TD DAILY [facility] Last Admin: 01/02/17 08:59 Dose: 1 patch Tizanidine HCl (Zanaflex) 4 mg PO TID [facility] Last Admin: 01/02/17 12:13 Dose: 4 mg Zolpidem Tartrate (Ambien) 5 mg PO HS [facility] Last Admin: 01/02/17 00:19 Dose: 5 mg - Labs Labs: 01/02/17 08:30 01/02/17 08:30 - Constitutional Appears: No Acute Distress - Head Exam Head Exam: NORMAL INSPECTION - Eye Exam Eye Exam: PERRL - ENT Exam ENT Exam: Normal Oropharynx - Neck Exam Neck Exam: Normal Inspection - Respiratory Exam Respiratory Exam: NORMAL BREATHING PATTERN - Cardiovascular Exam Cardiovascular Exam: REGULAR RHYTHM - GI/Abdominal Exam GI & Abdominal Exam: Soft, Normal Bowel Sounds - Extremities Exam Additional comments: S/P L TKR, tenderness on palpation , dressing in place. - Back Exam Back Exam: NORMAL INSPECTION - Neurological Exam Neurological Exam: Alert, Oriented x3 - Psychiatric Exam Psychiatric exam: Anxious, Depressed - Skin Skin Exam: Warm Assessment and Plan (1) Status post total knee replacement, left Status: Acute (2) Postoperative pain, acute, knee Status: Acute (3) Esophageal reflux Status: Acute (4) HLD (hyperlipidemia) Status: Chronic (5) Osteoporosis Status: Chronic (6) Anxious depression Status: Chronic (7) DVT prophylaxis Status: Acute (8) Anemia Status: Acute - Assessment and Plan (Free Text) Plan: Pt improved and stable to be transferred to TCU to continue PT.
== END 2017-01-02 15:08 | DRG 470 ==
LOC: H.OPSURG 06:29 → H.MEDSURG1 11:03
PROVIDERS: ADMIT Internal Medicine Pulmonary Disease; ATTEND Internal Medicine Pulmonary Disease
PROC: 0SRD0J9 Replacement of Left Knee Joint with Synthetic Substitute, Cemented, Open Approach (ICD-10-PCS; principal; 2016-12-29 07:45)
PROC: 0SBD0ZZ Excision of Left Knee Joint, Open Approach (ICD-10-PCS; 2016-12-29 07:45)
PROC: 30233N1 Transfusion of Nonautologous Red Blood Cells into Peripheral Vein, Percutaneous Approach (ICD-10-PCS; 2017-01-01)
DX: M17.12 Unilateral primary osteoarthritis, left knee (principal); D64.9 Anemia, unspecified; I10 Essential (primary) hypertension; K21.9 Gastro-esophageal reflux disease without esophagitis; F41.8 Other specified anxiety disorders; E78.5 Hyperlipidemia, unspecified; M81.0 Age-related osteoporosis without current pathological fracture; M65.9 Synovitis and tenosynovitis, unspecified

== ENCOUNTER 2017-01-01 15:38 | Inpatient (IN) | payer OTHER, MEDICAID ==
[2017-01-02 15:16] VITALS: BMI 32.1
[2017-01-02] MEDS: Sodium Chloride 0.9% 1,000 ML IV SCH (15:30)
[2017-01-02] MEDS ORDERED: Ergocalciferol 50,000 Intl Units Cap PO SCH (17:00)
[2017-01-02] MEDS: Oxycodone/Acetaminophen 5/325 mg Tab PO PRN (18:37)
--- NOTE | 2017-01-02 19:45 | CP.PCM.CON ---
History of Present Illness - History of Present Illness History of Present Illness: Dr William PMR consultation on Christen Pollack, born 1945, who has been admitted to [facility]CU for post left TKR rehabilitation. She had severe left knee internal derangement and underwent a left TKR by Dr Kat. Post op she she is also without a BM x 6 days which was the same situation as her last stay when she underwent a right TKR in September. Supportive family but does live alone. + elevator building denies toxic habits. Review of Systems - Constitutional Constitutional: absent: Anorexia, Chills - Cardiovascular Cardiovascular: absent: Chest Pain - Respiratory Respiratory: absent: Cough, Dyspnea - Gastrointestinal Gastrointestinal: Constipation. absent: Cramping - Integumentary Integumentary: Other (left knee incision) - Neurological Neurological: absent: Abnormal Movements - Psychiatric Psychiatric: Anxiety Past Patient History - Infectious Disease Hx of Infectious Diseases: None - Past Medical History & Family History Past Medical History?: Yes - Past Social History Smoking Status: Never Smoked Drugs: Denies Home Situation {Lives}: Alone - CARDIAC Hx Cardiac Disorders: No Hx Angina: No Hx Congestive Heart Failure: No Hx Heart Attack: No Hx Hypercholesterolemia: No Hx Hypertension: No Hx Pacemaker: No Hx Peripheral Vascular Disease: No - PULMONARY Hx Respiratory Disorders: No Hx Asthma: No Hx Chronic Obstructive Pulmonary Disease (COPD): No - NEUROLOGICAL Hx Neurological Disorder: Yes Hx Dementia: Yes Hx Seizures: No - HEENT Hx HEENT Problems: Yes Hx Cataracts: Yes - RENAL Hx Chronic Kidney Disease: No - ENDOCRINE/METABOLIC Hx Endocrine Disorders: No - HEMATOLOGICAL/ONCOLOGICAL Hx Blood Disorders: No Hx AIDS: No Hx Human Immunodeficiency Virus (HIV): No - INTEGUMENTARY Hx Dermatological Problems: No - MUSCULOSKELETAL/RHEUMATOLOGICAL Hx Falls: No - GASTROINTESTINAL Hx Gastrointestinal Disorders: Yes Hx Gastritis: Yes Hx Gastroesophageal Reflux: Yes - GENITOURINARY/GYNECOLOGICAL Hx Genitourinary Disorders: No - PSYCHIATRIC Hx Substance Use: No - SURGICAL HISTORY Hx Surgeries: Yes Hx Cataract Extraction: Yes Hx Cardiac Catheterization: No Hx Coronary Artery Bypass Graft: No Hx Eye Surgery: Yes (O.U) Hx Hysterectomy: Yes Hx Joint Replacement: Yes (RIGHT TKR 09/22/16) Hx Musculoskeletal Surgery: Yes (Left knee sx) Hx Orthopedic Surgery: Yes (RTKR) Other/Comment: Hx cyst excision left forearm. RTKR - ANESTHESIA Hx Anesthesia: Yes Hx Anesthesia Reactions: No Hx Malignant Hyperthermia: No Meds Allergies/Adverse Reactions: Allergies Allergy/AdvReac Type Severity Reaction Status Date / Time No Known Allergies Allergy Verified 01/02/17 15:15 - Medications Medications: Current Medications Al Hydrox/Mg Hydrox/Simethicone (Maalox Plus 30 Ml) 30 ml PO Q4 PRN PRN Reason: Indigestion / Heartburn Aspirin (Ecotrin) 81 mg PO DAILY [facility] Benzocaine/Menthol (Cepacol Sore Throat) 1 matt PO Q4 PRN PRN Reason: Sore Throat Calcium/Vitamin D (Oyster Shell Calcium/Vitamin D 500 Mg-200 Iu) 1 tab PO DAILY [facility] Clonazepam (Klonopin) 0.5 mg PO DAILY [facility] Docusate Sodium (Colace) 100 mg PO TID [facility] Last Admin: 01/02/17 18:04 Dose: 100 mg Enoxaparin Sodium (Lovenox) 40 mg SC DAILY [facility] PRN Reason: Protocol Epoetin Osito (Procrit) 10,000 unit SC MWF [facility] Ergocalciferol (Drisdol 50,000 Intl Units Cap) 1 cap PO QWK [facility] Ferrous Sulfate (Feosol) 325 mg PO BID [facility] Last Admin: 01/02/17 18:04 Dose: 325 mg Sodium Chloride (Sodium Chloride 0.9%) 1,000 mls @ 80 mls/hr IV .[id number] [facility] Stop: 01/03/17 16:10 Last Admin: 01/02/17 15:30 Dose: 80 mls/hr Lactulose (Enulose) 20 gm PO DAILY PRN PRN Reason: Constipation Last Admin: 01/02/17 18:14 Dose: 20 gm Pfawq-2-Mupx Ethyl Esters (Lovaza) 1 gm PO DAILY [facility] Oxybutynin Chloride (Ditropan Tab) 5 mg PO BID [facility] Last Admin: 01/02/17 18:04 Dose: 5 mg Oxycodone/Acetaminophen (Percocet 5/325 Mg Tab) 1 tab PO Q4 PRN PRN Reason: Pain, moderate (4-7) Stop: 01/05/17 16:10 Last Admin: 01/02/17 18:37 Dose: 1 tab Oxycodone/Acetaminophen (Percocet 5/325 Mg Tab) 2 tab PO Q4 PRN PRN Reason: Pain, severe (8-10) Stop: 01/05/17 16:13 Rivastigmine (Exelon 9.5 Mg/24 Hr Patch) 1 patch TD DAILY [facility] Tizanidine HCl (Zanaflex) 4 mg PO TID [facility] Last Admin: 01/02/17 18:04 Dose: 4 mg Zolpidem Tartrate (Ambien) 5 mg PO [facility] Physical Exam - Constitutional Appears: Non-toxic, Other (uncomfortable with motion) - Eye Exam Eye Exam: EOMI, Normal appearance - ENT Exam ENT Exam: Mucous Membranes Moist - Respiratory Exam Respiratory Exam: NORMAL BREATHING PATTERN - Cardiovascular Exam Cardiovascular Exam: REGULAR RHYTHM - GI/Abdominal Exam GI & Abdominal Exam: Hyperactive Bowel Sounds. absent: Firm - Extremities Exam Extremities exam: Positive for: joint swelling (left knee) - Neurological Exam Neurological exam: Alert, CN II-XII Intact, Oriented x3 - Psychiatric Exam Psychiatric exam: Anxious Results - Vital Signs Recent Vital Signs: Last Vital Signs Temp 97.9 F 01/02/17 16:55 Pulse 56 L 01/02/17 16:55 Resp 18 01/02/17 16:55 BP 84/50 L 01/02/17 16:55 Pulse Ox 98 01/02/17 16:55 Assessment & Plan - Assessment and Plan (Free Text) Assessment: PT/OT to continue to help increase functional independence Pain: present but she is very sensitive to medications as noted on last stay. We will use physical modalities to help and ice will be ordered Vascular: no evidence of DVT, on prophylaxis GI: Constipation Patient continues to be an excellent TCU rehabilitation candidate and will have continued focused PT, OT and recreational therapy to help facilitate a safe and appropriate d/c plan
[2017-01-02] MEDS: Alum-Mag Hydrox-Simethicone Susp (30 mL) PO PRN (20:57)
[2017-01-02] MEDS ORDERED: ZOLPIDEM 5 MG PO SCH (22:00)
[2017-01-03] MEDS: Oxycodone/Acetaminophen 5/325 mg Tab PO PRN ×4 (00:10→21:20)
[2017-01-03] MEDS: Sodium Chloride 0.9% 1,000 ML IV SCH (03:36)
[2017-01-03] MEDS: Alum-Mag Hydrox-Simethicone Susp (30 mL) PO PRN ×3 (08:32→21:21)
[2017-01-03] MEDS: Calcium-Vit D 500 mg-200 Units Tab UD PO SCH (08:37)
[2017-01-03] MEDS: Omega-3-Acid Ethyl Esters 1 GM Cap PO SCH (08:37)
[2017-01-03] MEDS: Enoxaparin 40 mg Syringe SC SCH (08:37)
[2017-01-03] MEDS ORDERED: CALCIUM CARBONATE PO SCH (09:00)
[2017-01-03] MEDS ORDERED: VITAMIN D3 PO SCH (09:00)
--- NOTE | 2017-01-03 13:53 | CP.PCM.PN ---
Subjective - Date & Time of Evaluation Date of Evaluation: 01/03/17 Time of Evaluation: 13:52 - Subjective Subjective: Patient seen in room had 2 supp. with good relief and 4 bowel movements incision CDI Objective - Vital Signs/Intake and Output Vital Signs (last 24 hours): Temp Pulse Resp BP Pulse Ox 99.6 F 95 H 20 124/59 L 97 01/03/17 08:19 01/03/17 11:18 01/03/17 08:19 01/03/17 11:18 01/03/17 11:18 - Medications Medications: Current Medications Acetaminophen (Tylenol 325mg Tab) 650 mg PO Q4 PRN PRN Reason: Fever >100.4 F Al Hydrox/Mg Hydrox/Simethicone (Maalox Plus 30 Ml) 30 ml PO Q4 PRN PRN Reason: Indigestion / Heartburn Last Admin: 01/03/17 08:32 Dose: 30 ml Aspirin (Ecotrin) 81 mg PO DAILY [facility] Last Admin: 01/03/17 08:38 Dose: 81 mg Benzocaine/Menthol (Cepacol Sore Throat) 1 matt PO Q4 PRN PRN Reason: Sore Throat Calcium/Vitamin D (Oyster Shell Calcium/Vitamin D 500 Mg-200 Iu) 1 tab PO DAILY [facility] Last Admin: 01/03/17 08:37 Dose: 1 tab Clonazepam (Klonopin) 0.5 mg PO DAILY@2100 [facility] Docusate Sodium (Colace) 100 mg PO TID [facility] Last Admin: 01/03/17 12:48 Dose: 100 mg Enoxaparin Sodium (Lovenox) 40 mg SC DAILY [facility] PRN Reason: Protocol Last Admin: 01/03/17 08:37 Dose: 40 mg Epoetin Osito (Procrit) 10,000 unit SC MWF [facility] Ergocalciferol (Drisdol 50,000 Intl Units Cap) 1 cap PO QWK [facility] Ferrous Sulfate (Feosol) 325 mg PO BID [facility] Last Admin: 01/03/17 08:38 Dose: 325 mg Sodium Chloride (Sodium Chloride 0.9%) 1,000 mls @ 80 mls/hr IV .[id number] [facility] Stop: 01/03/17 16:10 Last Admin: 01/03/17 03:36 Dose: 80 mls/hr Lactulose (Enulose) 20 gm PO DAILY PRN PRN Reason: Constipation Last Admin: 01/02/17 18:14 Dose: 20 gm Wqrvf-1-Egwe Ethyl Esters (Lovaza) 1 gm PO DAILY [facility] Last Admin: 01/03/17 08:37 Dose: 1 gm Oxybutynin Chloride (Ditropan Tab) 5 mg PO BID [facility] Last Admin: 01/03/17 08:38 Dose: 5 mg Oxycodone/Acetaminophen (Percocet 5/325 Mg Tab) 1 tab PO Q4 PRN PRN Reason: Pain, moderate (4-7) Stop: 01/05/17 16:10 Last Admin: 01/03/17 00:10 Dose: 1 tab Oxycodone/Acetaminophen (Percocet 5/325 Mg Tab) 2 tab PO Q4 PRN PRN Reason: Pain, severe (8-10) Stop: 01/05/17 16:13 Last Admin: 01/03/17 08:32 Dose: 2 tab Rivastigmine (Exelon 9.5 Mg/24 Hr Patch) 1 patch TD DAILY [facility] Last Admin: 01/03/17 08:38 Dose: 1 patch Tizanidine HCl (Zanaflex) 4 mg PO TID [facility] Last Admin: 01/03/17 12:46 Dose: 4 mg Zolpidem Tartrate (Ambien) 5 mg PO HS [facility] Last Admin: 01/03/17 00:25 Dose: 5 mg
--- NOTE | 2017-01-03 14:15 | CP.PCM.HP ---
History of Present Illness - History of Present Illness History of Present Illness: 71 y/o F admitted to [facility] on 12/29/16 scheduled for OR same day for L TKR Arthrospasty 2nd to severe O/A L knee with cyst in the lateral femoral condyle. Pt underwent well the procedure and after improvement and stable, was discharged to TCU to have Physical Therapy and OT for functional independence. Pt c/o of pain in L knee, constant, moderate to severe 7:10. Present on Admission - Present on Admission Any Indicators Present on Admission: No Review of Systems - Constitutional Constitutional: Weakness - EENT Eyes: Other (negative) Ears: Other (negative) Nose/Mouth/Throat: Other (negative) - Cardiovascular Cardiovascular: Other (negative) - Respiratory Respiratory: Other (negative) - Gastrointestinal Gastrointestinal: Other (negative) - Genitourinary Genitourinary: Other (negative) - Musculoskeletal Musculoskeletal: Arthralgias, Back Pain, Joint Swelling (L knee), Muscle Weakness, Other (Pain L knee.) - Integumentary Integumentary: Wounds (L knee 2nd to TKR) - Neurological Neurological: Other (negative) - Psychiatric Psychiatric: Anxiety, Depression - Endocrine Endocrine: Other (negative) - Hematologic/Lymphatic Hematologic: Other (negative) Past Patient History - Infectious Disease Hx of Infectious Diseases: None - Past Medical History & Family History Past Medical History?: Yes Pertinent Family History: Unknown - Past Social History Smoking Status: Never Smoked Drugs: Denies Home Situation {Lives}: Alone - CARDIAC Hx Cardiac Disorders: No Hx Angina: No Hx Congestive Heart Failure: No Hx Heart Attack: No Hx Hypercholesterolemia: No Hx Hypertension: No Hx Pacemaker: No Hx Peripheral Vascular Disease: No - PULMONARY Hx Respiratory Disorders: No Hx Asthma: No Hx Chronic Obstructive Pulmonary Disease (COPD): No - NEUROLOGICAL Hx Neurological Disorder: Yes Hx Dementia: Yes Hx Seizures: No - HEENT Hx HEENT Problems: Yes Hx Cataracts: Yes - RENAL Hx Chronic Kidney Disease: No - ENDOCRINE/METABOLIC Hx Endocrine Disorders: No - HEMATOLOGICAL/ONCOLOGICAL Hx Blood Disorders: No Hx AIDS: No Hx Human Immunodeficiency Virus (HIV): No - INTEGUMENTARY Hx Dermatological Problems: No - MUSCULOSKELETAL/RHEUMATOLOGICAL Hx Falls: No - GASTROINTESTINAL Hx Gastrointestinal Disorders: Yes Hx Gastritis: Yes Hx Gastroesophageal Reflux: Yes - GENITOURINARY/GYNECOLOGICAL Hx Genitourinary Disorders: No - PSYCHIATRIC Hx Substance Use: No - SURGICAL HISTORY Hx Surgeries: Yes Hx Cataract Extraction: Yes Hx Cardiac Catheterization: No Hx Coronary Artery Bypass Graft: No Hx Eye Surgery: Yes (O.U) Hx Hysterectomy: Yes Hx Joint Replacement: Yes (RIGHT TKR 09/22/16) Hx Musculoskeletal Surgery: Yes (Left knee sx) Hx Orthopedic Surgery: Yes (RTKR) Other/Comment: Hx cyst excision left forearm. RTKR - ANESTHESIA Hx Anesthesia: Yes Hx Anesthesia Reactions: No Hx Malignant Hyperthermia: No Meds Allergies/Adverse Reactions: Allergies Allergy/AdvReac Type Severity Reaction Status Date / Time No Known Allergies Allergy Verified 01/02/17 15:15 Physical Exam - Constitutional Appears: No Acute Distress - Head Exam Head Exam: NORMAL INSPECTION - Eye Exam Eye Exam: PERRL - ENT Exam ENT Exam: Normal Oropharynx - Neck Exam Neck exam: Positive for: Normal Inspection - Respiratory Exam Respiratory Exam: NORMAL BREATHING PATTERN - Cardiovascular Exam Cardiovascular Exam: REGULAR RHYTHM - GI/Abdominal Exam GI & Abdominal Exam: Normal Bowel Sounds, Soft - Extremities Exam Additional comments: S/P L knee TKR, knee dressing in place, legs edema. - Back Exam Back exam: NORMAL INSPECTION - Neurological Exam Neurological exam: Alert, Oriented x3 - Psychiatric Exam Psychiatric exam: Anxious, Depressed - Skin Skin Exam: Warm Results - Vital Signs Recent Vital Signs: Last Vital Signs Temp 99.6 F 01/03/17 08:19 Pulse 95 H 01/03/17 11:18 Resp 20 01/03/17 08:19 BP 124/59 L 01/03/17 11:18 Pulse Ox 97 01/03/17 11:18 reviewed J.P. - Labs Labs: reviewed J.P. Assessment & Plan (1) Postoperative pain, acute, knee Status: Acute (2) Status post total knee replacement, left Status: Acute Priority: High (3) Anemia Status: Acute (4) Esophageal reflux Status: Acute (5) Anxious depression Status: Chronic (6) Osteoporosis Status: Chronic (7) HLD (hyperlipidemia) Status: Chronic (8) DVT prophylaxis Status: Acute - Assessment and Plan (Free Text) Plan: F/U OT, PT eval, Continue Lovenox, Percocet, Zanaflex, Lovaza and rest of Tx. Orthopedic and Psychiatric consult. - Date & Time Date: 01/03/17 Time: 12:00
[2017-01-03] MEDS: Benzocaine/Menthol (Cepacol) Lozenge PO PRN (15:39)
[2017-01-04] MEDS: Alum-Mag Hydrox-Simethicone Susp (30 mL) PO PRN ×3 (01:48→21:13)
[2017-01-04] MEDS: Oxycodone/Acetaminophen 5/325 mg Tab PO PRN ×4 (01:49→21:11)
[2017-01-04] MEDS: Omega-3-Acid Ethyl Esters 1 GM Cap PO SCH (09:24)
[2017-01-04] MEDS: Calcium-Vit D 500 mg-200 Units Tab UD PO SCH (09:25)
[2017-01-04] MEDS: Enoxaparin 40 mg Syringe SC SCH (09:25)
--- NOTE | 2017-01-04 17:04 | CP.PCM.PN ---
Subjective - Date & Time of Evaluation Date of Evaluation: 01/04/17 - Subjective Subjective: F/U L TKR Minimal pain in L knee now. Objective - Vital Signs/Intake and Output Vital Signs (last 24 hours): Temp Pulse Resp BP Pulse Ox 98.2 F 72 20 93/55 L 98 01/04/17 16:38 01/04/17 16:38 01/04/17 16:38 01/04/17 16:38 01/04/17 16:38 - Medications Medications: Current Medications Acetaminophen (Tylenol 325mg Tab) 650 mg PO Q4 PRN PRN Reason: Fever >100.4 F Al Hydrox/Mg Hydrox/Simethicone (Maalox Plus 30 Ml) 30 ml PO Q4 PRN PRN Reason: Indigestion / Heartburn Last Admin: 01/04/17 08:19 Dose: 30 ml Aspirin (Ecotrin) 81 mg PO DAILY [facility] Last Admin: 01/04/17 09:23 Dose: 81 mg Benzocaine/Menthol (Cepacol Sore Throat) 1 matt PO Q4 PRN PRN Reason: Sore Throat Last Admin: 01/03/17 15:39 Dose: 1 matt Calcium/Vitamin D (Oyster Shell Calcium/Vitamin D 500 Mg-200 Iu) 1 tab PO DAILY [facility] Last Admin: 01/04/17 09:25 Dose: 1 tab Clonazepam (Klonopin) 0.5 mg PO DAILY@2100 [facility] Last Admin: 01/03/17 21:19 Dose: 0.5 mg Docusate Sodium (Colace) 100 mg PO TID [facility] Last Admin: 01/04/17 16:29 Dose: 100 mg Enoxaparin Sodium (Lovenox) 40 mg SC DAILY [facility] PRN Reason: Protocol Last Admin: 01/04/17 09:25 Dose: 40 mg Epoetin Osito (Procrit) 10,000 unit SC MWF [facility] Ergocalciferol (Drisdol 50,000 Intl Units Cap) 1 cap PO QWK [facility] Ferrous Sulfate (Feosol) 325 mg PO BID [facility] Last Admin: 01/04/17 16:30 Dose: 325 mg Lactulose (Enulose) 20 gm PO DAILY PRN PRN Reason: Constipation Last Admin: 01/02/17 18:14 Dose: 20 gm [id number]-[id number] Ethyl Esters (Lovaza) 1 gm PO DAILY [facility] Last Admin: 01/04/17 09:24 Dose: 1 gm Oxybutynin Chloride (Ditropan Tab) 5 mg PO BID [facility] Last Admin: 01/04/17 09:23 Dose: 5 mg Oxycodone/Acetaminophen (Percocet 5/325 Mg Tab) 1 tab PO Q4 PRN PRN Reason: Pain, moderate (4-7) Stop: 01/05/17 16:10 Last Admin: 01/03/17 14:07 Dose: 1 tab Oxycodone/Acetaminophen (Percocet 5/325 Mg Tab) 2 tab PO Q4 PRN PRN Reason: Pain, severe (8-10) Stop: 01/05/17 16:13 Last Admin: 01/04/17 12:49 Dose: 2 tab Rivastigmine (Exelon 9.5 Mg/24 Hr Patch) 1 patch TD DAILY [facility] Last Admin: 01/04/17 09:24 Dose: 1 patch Tizanidine HCl (Zanaflex) 4 mg PO TID [facility] Last Admin: 01/04/17 16:30 Dose: 4 mg Zolpidem Tartrate (Ambien) 5 mg PO HS [facility] Last Admin: 01/03/17 22:40 Dose: 5 mg - Constitutional Appears: No Acute Distress - Head Exam Head Exam: NORMAL INSPECTION - Eye Exam Eye Exam: PERRL - ENT Exam ENT Exam: Normal Oropharynx - Neck Exam Neck Exam: Normal Inspection - Respiratory Exam Respiratory Exam: NORMAL BREATHING PATTERN - Cardiovascular Exam Cardiovascular Exam: REGULAR RHYTHM - GI/Abdominal Exam GI & Abdominal Exam: Soft, Normal Bowel Sounds - Extremities Exam Additional comments: S/P L TKR, dressing in place, legs edema. - Back Exam Back Exam: NORMAL INSPECTION - Neurological Exam Neurological Exam: Alert, Oriented x3 - Psychiatric Exam Psychiatric exam: Normal Mood - Skin Skin Exam: Warm Assessment and Plan (1) Status post total knee replacement, left Status: Acute (2) Postoperative pain, acute, knee Assessment & Plan: Improved Status: Acute (3) Anemia Status: Acute (4) Esophageal reflux Status: Acute (5) Anxious depression Status: Chronic (6) Osteoporosis Status: Chronic (7) HLD (hyperlipidemia) Status: Chronic (8) DVT prophylaxis Status: Acute - Assessment and Plan (Free Text) Plan: Continue PT, c/o of loose stool,DC Colace, continue Percocet and rest of tx.
[2017-01-05] MEDS: Oxycodone/Acetaminophen 5/325 mg Tab PO PRN ×5 (03:11→22:07)
[2017-01-05] MEDS: Alum-Mag Hydrox-Simethicone Susp (30 mL) PO PRN ×2 (03:12→06:59)
[2017-01-05] MEDS: Benzocaine/Menthol (Cepacol) Lozenge PO PRN (06:59)
[2017-01-05] MEDS: Omega-3-Acid Ethyl Esters 1 GM Cap PO SCH (09:39)
[2017-01-05] MEDS: Enoxaparin 40 mg Syringe SC SCH (09:39)
[2017-01-05] MEDS: Calcium-Vit D 500 mg-200 Units Tab UD PO SCH (09:40)
[2017-01-05] MEDS: EPOETIN ALFA 10,000 UNIT/ML ML SC SCH (09:41)
--- NOTE | 2017-01-05 17:05 | CP.PCM.PN ---
Subjective - Date & Time of Evaluation Date of Evaluation: 01/05/17 Time of Evaluation: 11:50 - Subjective Subjective: F/U L TKR Pt doing well with PT, flexion to 80 degree, less pain in L knee Objective - Vital Signs/Intake and Output Vital Signs (last 24 hours): Temp Pulse Resp BP Pulse Ox 96.8 F L 66 20 126/62 100 01/05/17 16:22 01/05/17 16:22 01/05/17 16:22 01/05/17 16:22 01/05/17 16:22 - Medications Medications: Current Medications Acetaminophen (Tylenol 325mg Tab) 650 mg PO Q4 PRN PRN Reason: Fever >100.4 F Al Hydrox/Mg Hydrox/Simethicone (Maalox Plus 30 Ml) 30 ml PO Q4 PRN PRN Reason: Indigestion / Heartburn Last Admin: 01/05/17 06:59 Dose: 30 ml Aspirin (Ecotrin) 81 mg PO DAILY [facility] Last Admin: 01/05/17 09:36 Dose: 81 mg Benzocaine/Menthol (Cepacol Sore Throat) 1 matt PO Q4 PRN PRN Reason: Sore Throat Last Admin: 01/05/17 06:59 Dose: 1 matt Calcium/Vitamin D (Oyster Shell Calcium/Vitamin D 500 Mg-200 Iu) 1 tab PO DAILY [facility] Last Admin: 01/05/17 09:40 Dose: 1 tab Clonazepam (Klonopin) 0.5 mg PO DAILY@2100 [facility] Last Admin: 01/04/17 21:12 Dose: 0.5 mg Docusate Sodium (Colace) 100 mg PO TID [facility] Last Admin: 01/05/17 16:12 Dose: 100 mg Enoxaparin Sodium (Lovenox) 40 mg SC DAILY [facility] PRN Reason: Protocol Last Admin: 01/05/17 09:39 Dose: 40 mg Epoetin Osito (Procrit) 10,000 unit SC MWF [facility] Last Admin: 01/05/17 09:41 Dose: 10,000 unit Ergocalciferol (Drisdol 50,000 Intl Units Cap) 1 cap PO QWK [facility] Ferrous Sulfate (Feosol) 325 mg PO BID [facility] Last Admin: 01/05/17 16:11 Dose: 325 mg [id number] Ethyl Esters (Lovaza) 1 gm PO DAILY [facility] Last Admin: 01/05/17 09:39 Dose: 1 gm Oxybutynin Chloride (Ditropan Tab) 5 mg PO BID [facility] Last Admin: 01/05/17 16:12 Dose: 5 mg Rivastigmine (Exelon 9.5 Mg/24 Hr Patch) 1 patch TD DAILY [facility] Last Admin: 01/05/17 09:37 Dose: 1 patch Tizanidine HCl (Zanaflex) 4 mg PO TID [facility] Last Admin: 01/05/17 13:05 Dose: 4 mg Zolpidem Tartrate (Ambien) 5 mg PO HS [facility] Last Admin: 01/04/17 21:43 Dose: 5 mg - Constitutional Appears: No Acute Distress - Head Exam Head Exam: NORMAL INSPECTION - Eye Exam Eye Exam: PERRL - ENT Exam ENT Exam: Normal Oropharynx - Neck Exam Neck Exam: Normal Inspection - Respiratory Exam Respiratory Exam: NORMAL BREATHING PATTERN - Cardiovascular Exam Cardiovascular Exam: REGULAR RHYTHM - GI/Abdominal Exam GI & Abdominal Exam: Soft, Normal Bowel Sounds - Extremities Exam Additional comments: S/P L TKR,tenderness on palpation, neuromuscular status distal good. - Back Exam Back Exam: NORMAL INSPECTION - Neurological Exam Neurological Exam: Alert, Oriented x3 - Psychiatric Exam Psychiatric exam: Anxious, Depressed - Skin Skin Exam: Warm Assessment and Plan (1) Status post total knee replacement, left Status: Acute (2) Postoperative pain, acute, knee Status: Acute (3) Anemia Status: Acute (4) Esophageal reflux Status: Acute (5) Anxious depression Status: Chronic (6) Osteoporosis Status: Chronic (7) HLD (hyperlipidemia) Status: Chronic (8) DVT prophylaxis Status: Acute - Assessment and Plan (Free Text) Plan: Continue Lovenox, Tylenol, Ecotrin and rest of Tx, PT,OT
[2017-01-05] MEDS ORDERED: Oxycodone/Acetaminophen 5/325 mg Tab PO PRN (21:53)
[2017-01-06] MEDS: Oxycodone/Acetaminophen 5/325 mg Tab PO PRN (08:49)
[2017-01-06] MEDS: Omega-3-Acid Ethyl Esters 1 GM Cap PO SCH (10:46)
[2017-01-06] MEDS: Enoxaparin 40 mg Syringe SC SCH (10:47)
[2017-01-06] MEDS: Calcium-Vit D 500 mg-200 Units Tab UD PO SCH (10:47)
[2017-01-06] MEDS ORDERED: Oxycodone/Acetaminophen 5/325 mg Tab PO PRN (11:38)
[2017-01-06] MEDS: Benzocaine/Menthol (Cepacol) Lozenge PO PRN (13:10)
--- NOTE | 2017-01-06 14:56 | CP.PCM.PN ---
Subjective - Date & Time of Evaluation Date of Evaluation: 01/06/17 Time of Evaluation: 11:30 - Subjective Subjective: F/U L TKR Pain in L knee improved, had diarrhea yesterday relieved with Imodium. Objective - Vital Signs/Intake and Output Vital Signs (last 24 hours): Temp Pulse Resp BP Pulse Ox 98.1 F 83 20 155/79 H 97 01/06/17 08:08 01/06/17 10:15 01/06/17 08:08 01/06/17 10:15 01/06/17 10:15 - Medications Medications: Current Medications Acetaminophen (Tylenol 325mg Tab) 650 mg PO Q4 PRN PRN Reason: Fever >100.4 F Al Hydrox/Mg Hydrox/Simethicone (Maalox Plus 30 Ml) 30 ml PO Q4 PRN PRN Reason: Indigestion / Heartburn Last Admin: 01/05/17 06:59 Dose: 30 ml Aspirin (Ecotrin) 81 mg PO DAILY [facility] Last Admin: 01/06/17 10:46 Dose: 81 mg Benzocaine/Menthol (Cepacol Sore Throat) 1 matt PO Q4 PRN PRN Reason: Sore Throat Last Admin: 01/06/17 13:10 Dose: 1 matt Calcium/Vitamin D (Oyster Shell Calcium/Vitamin D 500 Mg-200 Iu) 1 tab PO DAILY [facility] Last Admin: 01/06/17 10:47 Dose: 1 tab Clonazepam (Klonopin) 0.5 mg PO DAILY@2100 [facility] Last Admin: 01/05/17 22:03 Dose: 0.5 mg Docusate Sodium (Colace) 100 mg PO TID [facility] Last Admin: 01/06/17 13:09 Dose: 100 mg Epoetin Osito (Procrit) 10,000 unit SC MWF [facility] Last Admin: 01/05/17 09:41 Dose: 10,000 unit Ergocalciferol (Drisdol 50,000 Intl Units Cap) 1 cap PO QWK [facility] Ferrous Sulfate (Feosol) 325 mg PO BID [facility] Last Admin: 01/06/17 10:46 Dose: 325 mg Xoynd-[id number] Ethyl Esters (Lovaza) 1 gm PO DAILY [facility] Last Admin: 01/06/17 10:46 Dose: 1 gm Oxybutynin Chloride (Ditropan Tab) 5 mg PO BID [facility] Last Admin: 01/06/17 10:45 Dose: 5 mg Oxycodone/Acetaminophen (Percocet 5/325 Mg Tab) 1 tab PO Q4 PRN PRN Reason: Pain, moderate (4-7) Stop: 01/08/17 21:53 Last Admin: 01/06/17 08:49 Dose: 1 tab Oxycodone/Acetaminophen (Percocet 5/325 Mg Tab) 2 tab PO Q4 PRN PRN Reason: Pain, severe (8-10) Stop: 01/08/17 21:54 Oxycodone/Acetaminophen (Percocet 5/325 Mg Tab) 1 tab PO DAILY PRN PRN Reason: Pain, moderate (4-7) Stop: 01/10/17 09:01 Last Admin: 01/06/17 13:07 Dose: 1 tab Rivastigmine (Exelon 9.5 Mg/24 Hr Patch) 1 patch TD DAILY [facility] Last Admin: 01/06/17 10:46 Dose: 1 patch Tizanidine HCl (Zanaflex) 4 mg PO TID [facility] Last Admin: 01/06/17 13:09 Dose: 4 mg Zolpidem Tartrate (Ambien) 5 mg PO HS [facility] Last Admin: 01/05/17 23:00 Dose: 5 mg - Constitutional Appears: No Acute Distress - Head Exam Head Exam: NORMAL INSPECTION - Eye Exam Eye Exam: PERRL - ENT Exam ENT Exam: Normal Oropharynx - Neck Exam Neck Exam: Normal Inspection - Respiratory Exam Respiratory Exam: NORMAL BREATHING PATTERN - Cardiovascular Exam Cardiovascular Exam: REGULAR RHYTHM - GI/Abdominal Exam GI & Abdominal Exam: Soft, Normal Bowel Sounds - Extremities Exam Additional comments: S/P L TKR, tenderness on palpation, neuromuscular distal status good. - Back Exam Back Exam: NORMAL INSPECTION - Neurological Exam Neurological Exam: Alert, Oriented x3 - Psychiatric Exam Psychiatric exam: Anxious, Depressed - Skin Skin Exam: Warm Assessment and Plan (1) Status post total knee replacement, left Status: Acute (2) Postoperative pain, acute, knee Status: Acute (3) Anemia Status: Acute (4) Esophageal reflux Status: Acute (5) Anxious depression Status: Chronic (6) Osteoporosis Status: Chronic (7) HLD (hyperlipidemia) Status: Chronic (8) DVT prophylaxis Status: Acute - Assessment and Plan (Free Text) Plan: Continue Dilaudid, Lovenox and rest of Tx, PT.
[2017-01-06] MEDS ORDERED: Oxycodone/Acetaminophen 5/325 mg Tab PO ONE (16:36)
[2017-01-07 07:30] LABS: HEMATOCRIT 33.2 % (34.0-47.0); MEAN CELL VOLUME 86.8 fl (81.0-99.0); MEAN CORPUSCULAR HEMOGLOBIN 28.1 pg (27.0-31.0); MEAN CORPUSCULAR HGB CONC 32.4 g/dL (33.0-37.0); RED CELL DISTRIBUTION WIDTH 14.9 % (11.5-14.5)
[2017-01-07 07:55] LABS: BLOOD UREA NITROGEN 7 mg/dl (7-17); CALCIUM 9.1 mg/dL (8.4-10.2); CARBON DIOXIDE 25 mmol/L (22-30); CHLORIDE 105 mmol/L (98-107); GFR AFRICAN-AMERICAN > 60; GLUCOSE,RANDOM 104 mg/dL (65-105); POTASSIUM 3.5 MMOL/L (3.6-5.0); SODIUM 140 mmol/l (132-148)
[2017-01-07] MEDS: Alum-Mag Hydrox-Simethicone Susp (30 mL) PO PRN (08:59)
[2017-01-07] MEDS: EPOETIN ALFA 10,000 UNIT/ML ML SC SCH (09:03)
[2017-01-07] MEDS: Omega-3-Acid Ethyl Esters 1 GM Cap PO SCH (09:06)
[2017-01-07] MEDS: Enoxaparin 40 mg Syringe SC SCH (10:56)
[2017-01-07] MEDS: Calcium-Vit D 500 mg-200 Units Tab UD PO SCH (10:57)
[2017-01-07 16:04] VITALS: RESP 20
--- NOTE | 2017-01-07 16:53 | CP.PCM.PN ---
Subjective - Date & Time of Evaluation Date of Evaluation: 01/07/17 Time of Evaluation: 12:00 - Subjective Subjective: F/U L TKR Pt c/o of pain in L knee, improved with Dilaudid. Objective - Vital Signs/Intake and Output Vital Signs (last 24 hours): Temp Pulse Resp BP Pulse Ox 98.4 F 66 20 137/70 100 01/07/17 16:03 01/07/17 16:03 01/07/17 16:03 01/07/17 16:03 01/07/17 16:03 - Medications Medications: Current Medications Acetaminophen (Tylenol 325mg Tab) 650 mg PO Q4 PRN PRN Reason: Fever >100.4 F Al Hydrox/Mg Hydrox/Simethicone (Maalox Plus 30 Ml) 30 ml PO Q4 PRN PRN Reason: Indigestion / Heartburn Last Admin: 01/07/17 08:59 Dose: 30 ml Aspirin (Ecotrin) 81 mg PO DAILY [facility] Last Admin: 01/07/17 08:57 Dose: 81 mg Benzocaine/Menthol (Cepacol Sore Throat) 1 matt PO Q4 PRN PRN Reason: Sore Throat Last Admin: 01/06/17 13:10 Dose: 1 matt Calcium/Vitamin D (Oyster Shell Calcium/Vitamin D 500 Mg-200 Iu) 1 tab PO DAILY @1100 [facility] Last Admin: 01/07/17 10:57 Dose: 1 tab Clonazepam (Klonopin) 0.5 mg PO BID [facility] Docusate Sodium (Colace) 100 mg PO TID [facility] Last Admin: 01/07/17 12:29 Dose: 100 mg Enoxaparin Sodium (Lovenox) 40 mg SC DAILY [facility] PRN Reason: Protocol Last Admin: 01/07/17 10:56 Dose: 40 mg Epoetin Osito (Procrit) 10,000 unit SC MWF [facility] Last Admin: 01/07/17 09:03 Dose: 10,000 unit Ergocalciferol (Drisdol 50,000 Intl Units Cap) 1 cap PO QWK [facility] Ferrous Sulfate (Feosol) 325 mg PO BID [facility] Last Admin: 01/07/17 08:58 Dose: 325 mg Hydromorphone HCl (Dilaudid) 2 mg PO Q4 PRN PRN Reason: Pain, moderate (4-7) Last Admin: 01/07/17 07:49 Dose: 2 mg Hydromorphone HCl (Dilaudid) 4 mg PO Q4 PRN PRN Reason: Pain, severe (8-10) Last Admin: 01/07/17 12:27 Dose: 4 mg Zbyln-0-Jcht Ethyl Esters (Lovaza) 1 gm PO DAILY [facility] Last Admin: 01/07/17 09:06 Dose: 1 gm Oxybutynin Chloride (Ditropan Tab) 5 mg PO BID [facility] Last Admin: 01/07/17 08:57 Dose: 5 mg Rivastigmine (Exelon 9.5 Mg/24 Hr Patch) 1 patch TD DAILY [facility] Last Admin: 01/07/17 08:57 Dose: 1 patch Tizanidine HCl (Zanaflex) 4 mg PO TID [facility] Last Admin: 01/07/17 12:30 Dose: 4 mg Zolpidem Tartrate (Ambien) 5 mg PO HS [facility] Last Admin: 01/06/17 22:22 Dose: 5 mg - Labs Labs: 01/07/17 07:25 01/07/17 07:25 - Constitutional Appears: No Acute Distress - Head Exam Head Exam: NORMAL INSPECTION - Eye Exam Eye Exam: PERRL - ENT Exam ENT Exam: Normal Oropharynx - Neck Exam Neck Exam: Normal Inspection - Respiratory Exam Respiratory Exam: NORMAL BREATHING PATTERN - Cardiovascular Exam Cardiovascular Exam: REGULAR RHYTHM - GI/Abdominal Exam GI & Abdominal Exam: Soft, Normal Bowel Sounds - Extremities Exam Extremities Exam: Tenderness (L TKR, tenderness on palpation, neuromuscular distal status good.) - Back Exam Back Exam: NORMAL INSPECTION - Neurological Exam Neurological Exam: Alert, Oriented x3 - Psychiatric Exam Psychiatric exam: Anxious, Depressed - Skin Skin Exam: Warm Assessment and Plan (1) Status post total knee replacement, left Status: Acute (2) Postoperative pain, acute, knee Status: Acute (3) Anemia Status: Acute (4) Esophageal reflux Status: Acute (5) Anxious depression Status: Chronic (6) Osteoporosis Status: Chronic (7) HLD (hyperlipidemia) Status: Chronic (8) DVT prophylaxis Status: Acute - Assessment and Plan (Free Text) Plan: Continue Dilaudid rest of Tx. PT,OT
[2017-01-08 07:33] LABS: BLOOD UREA NITROGEN 7 mg/dl (7-17); CARBON DIOXIDE 27 mmol/L (22-30); CHLORIDE 104 mmol/L (98-107); GFR AFRICAN-AMERICAN > 60; GLUCOSE,RANDOM 99 mg/dL (65-105); POTASSIUM 3.6 MMOL/L (3.6-5.0); SODIUM 141 mmol/l (132-148)
[2017-01-08] MEDS ORDERED: Enoxaparin 40 mg Syringe ONE (09:00)
[2017-01-08] MEDS ORDERED: Omega-3-Acid Ethyl Esters 1 GM Cap ONE (09:00)
[2017-01-08] MEDS ORDERED: Benzocaine/Menthol (Cepacol) Lozenge ONE (09:00)
[2017-01-08] MEDS ORDERED: Alum-Mag Hydrox-Simethicone Susp (30 mL) ONE (09:00)
[2017-01-08] MEDS ORDERED: Calcium-Vit D 500 mg-200 Units Tab UD ONE (09:00)
--- NOTE | 2017-01-08 20:12 | CP.PCM.PN ---
Subjective - Date & Time of Evaluation Date of Evaluation: 01/08/17 Time of Evaluation: 12:10 - Subjective Subjective: F/U L TKR Pain in L knee improved, c/o of heartburn. Objective - Vital Signs/Intake and Output Vital Signs (last 24 hours): Temp Pulse Resp BP Pulse Ox 98.8 F 87 20 144/73 97 01/07/17 22:00 01/07/17 20:01 01/07/17 20:01 01/07/17 20:01 01/07/17 20:01 - Medications Medications: Current Medications Acetaminophen (Tylenol 325mg Tab) 650 mg PO Q4 PRN PRN Reason: Fever >100.4 F Al Hydrox/Mg Hydrox/Simethicone (Maalox Plus 30 Ml) 30 ml PO Q4 PRN PRN Reason: Indigestion / Heartburn Last Admin: 01/07/17 08:59 Dose: 30 ml Aspirin (Ecotrin) 81 mg PO DAILY [facility] Last Admin: 01/07/17 08:57 Dose: 81 mg Benzocaine/Menthol (Cepacol Sore Throat) 1 matt PO Q4 PRN PRN Reason: Sore Throat Last Admin: 01/06/17 13:10 Dose: 1 matt Calcium/Vitamin D (Oyster Shell Calcium/Vitamin D 500 Mg-200 Iu) 1 tab PO DAILY @1100 [facility] Last Admin: 01/07/17 10:57 Dose: 1 tab Clonazepam (Klonopin) 0.5 mg PO BID [facility] Last Admin: 01/07/17 17:13 Dose: 0.5 mg Docusate Sodium (Colace) 100 mg PO TID [facility] Last Admin: 01/07/17 17:10 Dose: 100 mg Enoxaparin Sodium (Lovenox) 40 mg SC DAILY [facility] PRN Reason: Protocol Last Admin: 01/07/17 10:56 Dose: 40 mg Epoetin Osito (Procrit) 10,000 unit SC MWF [facility] Last Admin: 01/07/17 09:03 Dose: 10,000 unit Ergocalciferol (Drisdol 50,000 Intl Units Cap) 1 cap PO QWK [facility] Ferrous Sulfate (Feosol) 325 mg PO BID [facility] Last Admin: 01/07/17 17:11 Dose: 325 mg Hydromorphone HCl (Dilaudid) 2 mg PO Q4 PRN PRN Reason: Pain, moderate (4-7) Last Admin: 01/07/17 07:49 Dose: 2 mg Hydromorphone HCl (Dilaudid) 4 mg PO Q4 PRN PRN Reason: Pain, severe (8-10) Last Admin: 01/07/17 22:35 Dose: 4 mg Azvni-8-Acie Ethyl Esters (Lovaza) 1 gm PO DAILY [facility] Last Admin: 01/07/17 09:06 Dose: 1 gm Oxybutynin Chloride (Ditropan Tab) 5 mg PO BID [facility] Last Admin: 01/07/17 17:11 Dose: 5 mg Rivastigmine (Exelon 9.5 Mg/24 Hr Patch) 1 patch TD DAILY [facility] Last Admin: 01/07/17 08:57 Dose: 1 patch Tizanidine HCl (Zanaflex) 4 mg PO TID [facility] Last Admin: 01/07/17 17:14 Dose: 4 mg Zolpidem Tartrate (Ambien) 5 mg PO HS [facility] Last Admin: 01/07/17 22:00 Dose: 5 mg - Labs Labs: 01/07/17 07:25 01/07/17 07:25 - Constitutional Appears: No Acute Distress - Head Exam Head Exam: NORMAL INSPECTION - Eye Exam Eye Exam: PERRL - ENT Exam ENT Exam: Normal Oropharynx - Neck Exam Neck Exam: Normal Inspection - Respiratory Exam Respiratory Exam: NORMAL BREATHING PATTERN - Cardiovascular Exam Cardiovascular Exam: REGULAR RHYTHM - GI/Abdominal Exam GI & Abdominal Exam: Soft, Normal Bowel Sounds - Extremities Exam Additional comments: S/P L TKR, tenderness on palpation, neuromuscular distal status good. - Back Exam Back Exam: NORMAL INSPECTION - Neurological Exam Neurological Exam: Alert, Oriented x3 - Psychiatric Exam Psychiatric exam: Anxious, Depressed - Skin Skin Exam: Warm Assessment and Plan (1) Status post total knee replacement, left Status: Acute (2) Postoperative pain, acute, knee Status: Acute (3) Anemia Status: Acute (4) Esophageal reflux Status: Acute (5) Anxious depression Status: Chronic (6) Osteoporosis Status: Chronic (7) HLD (hyperlipidemia) Status: Chronic (8) DVT prophylaxis Status: Acute - Assessment and Plan (Free Text) Plan: Continue Dilaudid, Lovenox, Maalox and rest of Tx.
[2017-01-09 08:01] LABS: BLOOD UREA NITROGEN 10 mg/dl (7-17); CALCIUM 9.5 mg/dL (8.4-10.2); CARBON DIOXIDE 28 mmol/L (22-30); CHLORIDE 103 mmol/L (98-107); GFR AFRICAN-AMERICAN > 60; GLUCOSE,RANDOM 96 mg/dL (65-105); POTASSIUM 3.8 MMOL/L (3.6-5.0); SODIUM 140 mmol/l (132-148)
[2017-01-09] MEDS: Omega-3-Acid Ethyl Esters 1 GM Cap PO SCH (08:30)
[2017-01-09] MEDS: EPOETIN ALFA 10,000 UNIT/ML ML SC SCH (08:31)
[2017-01-09] MEDS: Enoxaparin 40 mg Syringe SC SCH (08:31)
[2017-01-09] MEDS: Calcium-Vit D 500 mg-200 Units Tab UD PO SCH (11:28)
[2017-01-09] MEDS ORDERED: Oxycodone/Acetaminophen 5/325 mg Tab PO PRN (12:26)
--- NOTE | 2017-01-09 14:26 | CP.PCM.PN ---
Subjective - Date & Time of Evaluation Date of Evaluation: 01/09/17 Time of Evaluation: 12:30 - Subjective Subjective: F/U L TKR Pain in L knee improved. Objective - Vital Signs/Intake and Output Vital Signs (last 24 hours): Temp Pulse Resp BP Pulse Ox 98.4 F 89 20 134/73 99 01/09/17 08:19 01/09/17 08:19 01/09/17 08:19 01/09/17 08:19 01/09/17 08:19 - Medications Medications: Current Medications Acetaminophen (Tylenol 325mg Tab) 650 mg PO Q4 PRN PRN Reason: Fever >100.4 F Al Hydrox/Mg Hydrox/Simethicone (Maalox Plus 30 Ml) 30 ml PO Q4 PRN PRN Reason: Indigestion / Heartburn Last Admin: 01/07/17 08:59 Dose: 30 ml Aspirin (Ecotrin) 81 mg PO DAILY [facility] Last Admin: 01/09/17 08:32 Dose: 81 mg Benzocaine/Menthol (Cepacol Sore Throat) 1 matt PO Q4 PRN PRN Reason: Sore Throat Last Admin: 01/06/17 13:10 Dose: 1 matt Calcium/Vitamin D (Oyster Shell Calcium/Vitamin D 500 Mg-200 Iu) 1 tab PO DAILY @1100 [facility] Last Admin: 01/09/17 11:28 Dose: 1 tab Clonazepam (Klonopin) 0.5 mg PO BID [facility] Last Admin: 01/09/17 08:28 Dose: 0.5 mg Docusate Sodium (Colace) 100 mg PO TID [facility] Last Admin: 01/09/17 12:28 Dose: 100 mg Enoxaparin Sodium (Lovenox) 40 mg SC DAILY [facility] PRN Reason: Protocol Last Admin: 01/09/17 08:31 Dose: 40 mg Epoetin Osito (Procrit) 10,000 unit SC MWF [facility] Last Admin: 01/09/17 08:31 Dose: 10,000 unit Ergocalciferol (Drisdol 50,000 Intl Units Cap) 1 cap PO QWK [facility] Ferrous Sulfate (Feosol) 325 mg PO BID [facility] Last Admin: 01/09/17 08:29 Dose: 325 mg Iaiqo-3-Wlzz Ethyl Esters (Lovaza) 1 gm PO DAILY [facility] Last Admin: 01/09/17 08:30 Dose: 1 gm Oxybutynin Chloride (Ditropan Tab) 5 mg PO BID [facility] Last Admin: 01/09/17 08:30 Dose: 5 mg Oxycodone HCl (Oxycontin Extended Release Tab) 10 mg PO Q12 [facility] Stop: 01/12/17 21:01 Oxycodone/Acetaminophen (Percocet 5/325 Mg Tab) 1 tab PO Q4 PRN PRN Reason: for pain level 8-10 Stop: 01/12/17 12:27 Rivastigmine (Exelon 9.5 Mg/24 Hr Patch) 1 patch TD DAILY [facility] Last Admin: 01/09/17 08:32 Dose: 1 patch Tizanidine HCl (Zanaflex) 4 mg PO TID [facility] Last Admin: 01/09/17 12:28 Dose: 4 mg Zolpidem Tartrate (Ambien) 5 mg PO HS [facility] Last Admin: 01/08/17 23:09 Dose: 5 mg - Labs Labs: 01/07/17 07:25 01/09/17 07:36 - Constitutional Appears: No Acute Distress - Head Exam Head Exam: NORMAL INSPECTION - Eye Exam Eye Exam: PERRL - ENT Exam ENT Exam: Normal Oropharynx - Neck Exam Neck Exam: Normal Inspection - Respiratory Exam Respiratory Exam: Decreased Breath Sounds - Cardiovascular Exam Cardiovascular Exam: REGULAR RHYTHM - GI/Abdominal Exam GI & Abdominal Exam: Normal Bowel Sounds - Extremities Exam Additional comments: S/P L TKR, tenderness on palpation L knee, neuromuscular distal status good. - Back Exam Back Exam: NORMAL INSPECTION - Neurological Exam Neurological Exam: Alert, Oriented x3 - Psychiatric Exam Psychiatric exam: Anxious, Depressed - Skin Skin Exam: Warm Assessment and Plan (1) Status post total knee replacement, left Status: Acute (2) Postoperative pain, acute, knee Status: Acute (3) Anemia Status: Acute (4) Esophageal reflux Status: Acute (5) Anxious depression Status: Chronic (6) Osteoporosis Status: Chronic (7) HLD (hyperlipidemia) Status: Chronic (8) DVT prophylaxis Status: Acute - Assessment and Plan (Free Text) Plan: Continue with Percocet 5/325, Lovenox, Exelon Patch and rest of Tx.
[2017-01-09] MEDS: Oxycodone/Acetaminophen 5/325 mg Tab PO PRN ×2 (17:36→23:19)
[2017-01-09] MEDS: oxyCODONE 10 mg ER Tab (oxyCONTIN) PO SCH (21:19)
[2017-01-10] MEDS: Oxycodone/Acetaminophen 5/325 mg Tab PO PRN ×4 (04:28→19:01)
[2017-01-10] MEDS: oxyCODONE 10 mg ER Tab (oxyCONTIN) PO SCH ×2 (08:48→21:29)
[2017-01-10] MEDS: Enoxaparin 40 mg Syringe SC SCH (08:51)
[2017-01-10] MEDS: Omega-3-Acid Ethyl Esters 1 GM Cap PO SCH (08:52)
[2017-01-10] MEDS: Calcium-Vit D 500 mg-200 Units Tab UD PO SCH ×2 (11:00→13:00)
--- NOTE | 2017-01-10 15:05 | CP.PCM.PN ---
Subjective - Date & Time of Evaluation Date of Evaluation: 01/10/17 Time of Evaluation: 12:00 - Subjective Subjective: F/U L TKR Pain in L knee improved. Objective - Vital Signs/Intake and Output Vital Signs (last 24 hours): Temp Pulse Resp BP Pulse Ox 98.2 F 80 20 109/67 94 L 01/09/17 20:08 01/09/17 20:08 01/09/17 20:08 01/09/17 20:08 01/09/17 20:08 - Medications Medications: Current Medications Acetaminophen (Tylenol 325mg Tab) 650 mg PO Q4 PRN PRN Reason: Fever >100.4 F Al Hydrox/Mg Hydrox/Simethicone (Maalox Plus 30 Ml) 30 ml PO Q4 PRN PRN Reason: Indigestion / Heartburn Last Admin: 01/07/17 08:59 Dose: 30 ml Aspirin (Ecotrin) 81 mg PO DAILY [facility] Last Admin: 01/10/17 08:50 Dose: 81 mg Benzocaine/Menthol (Cepacol Sore Throat) 1 matt PO Q4 PRN PRN Reason: Sore Throat Last Admin: 01/06/17 13:10 Dose: 1 matt Calcium/Vitamin D (Oyster Shell Calcium/Vitamin D 500 Mg-200 Iu) 1 tab PO DAILY @1100 [facility] Last Admin: 01/10/17 13:00 Dose: 1 tab Clonazepam (Klonopin) 0.5 mg PO BID [facility] Last Admin: 01/10/17 08:49 Dose: 0.5 mg Docusate Sodium (Colace) 100 mg PO TID [facility] Last Admin: 01/10/17 13:01 Dose: 100 mg Epoetin Osito (Procrit) 10,000 unit FL MWF [facility] Last Admin: 01/09/17 08:31 Dose: 10,000 unit Ergocalciferol (Drisdol 50,000 Intl Units Cap) 1 cap PO QWK [facility] Ferrous Sulfate (Feosol) 325 mg PO BID [facility] Last Admin: 01/10/17 08:53 Dose: 325 mg Pibnh-2-Mkic Ethyl Esters (Lovaza) 1 gm PO DAILY [facility] Last Admin: 01/10/17 08:52 Dose: 1 gm Oxybutynin Chloride (Ditropan Tab) 5 mg PO BID [facility] Last Admin: 01/10/17 08:54 Dose: 5 mg Oxycodone HCl (Oxycontin Extended Release Tab) 10 mg PO Q12 [facility] Stop: 01/12/17 21:01 Last Admin: 01/10/17 08:48 Dose: 10 mg Oxycodone/Acetaminophen (Percocet 5/325 Mg Tab) 1 tab PO Q4 PRN PRN Reason: for pain level 8-10 Stop: 01/12/17 12:27 Last Admin: 01/10/17 08:48 Dose: 1 tab Rivastigmine (Exelon 9.5 Mg/24 Hr Patch) 1 patch TD DAILY [facility] Last Admin: 01/10/17 08:50 Dose: 1 patch Tizanidine HCl (Zanaflex) 4 mg PO TID [facility] Last Admin: 01/10/17 13:02 Dose: 4 mg Zolpidem Tartrate (Ambien) 5 mg PO HS [facility] Last Admin: 01/09/17 22:36 Dose: 5 mg - Labs Labs: 01/07/17 07:25 01/09/17 07:36 - Constitutional Appears: No Acute Distress - Head Exam Head Exam: NORMAL INSPECTION - Eye Exam Eye Exam: PERRL - ENT Exam ENT Exam: Normal Oropharynx - Neck Exam Neck Exam: Normal Inspection - Respiratory Exam Respiratory Exam: NORMAL BREATHING PATTERN - Cardiovascular Exam Cardiovascular Exam: REGULAR RHYTHM - GI/Abdominal Exam GI & Abdominal Exam: Soft, Normal Bowel Sounds - Extremities Exam Additional comments: L TKR, tenderness on palpation, neuromuscular distal status good. - Back Exam Back Exam: CVA tenderness (L) - Neurological Exam Neurological Exam: Alert, Oriented x3 - Psychiatric Exam Psychiatric exam: Anxious, Depressed - Skin Skin Exam: Warm Assessment and Plan (1) Status post total knee replacement, left Status: Acute (2) Postoperative pain, acute, knee Status: Acute (3) Anemia Status: Acute (4) Esophageal reflux Status: Acute (5) Anxious depression Status: Chronic (6) Osteoporosis Status: Chronic (7) HLD (hyperlipidemia) Status: Chronic (8) DVT prophylaxis Status: Acute - Assessment and Plan (Free Text) Plan: Continue Percocet, Ditropan, Lovenox and rest of Tx. PT
[2017-01-11] MEDS: Oxycodone/Acetaminophen 5/325 mg Tab PO PRN ×5 (00:03→19:02)
[2017-01-11] MEDS: oxyCODONE 10 mg ER Tab (oxyCONTIN) PO SCH ×2 (08:55→21:26)
[2017-01-11] MEDS: Omega-3-Acid Ethyl Esters 1 GM Cap PO SCH (08:56)
[2017-01-11] MEDS: Alum-Mag Hydrox-Simethicone Susp (30 mL) PO PRN ×2 (10:00→14:30)
[2017-01-11] MEDS: Calcium-Vit D 500 mg-200 Units Tab UD PO SCH (12:19)
[2017-01-11 12:27] LABS: HEMATOCRIT 38.8 % (34.0-47.0); MEAN CORPUSCULAR HEMOGLOBIN 28.2 pg (27.0-31.0); MEAN CORPUSCULAR HGB CONC 32.1 g/dL (33.0-37.0); RED CELL DISTRIBUTION WIDTH 15.6 % (11.5-14.5); WHITE BLOOD COUNT 8.4 K/uL (4.8-10.8)
[2017-01-11 12:35] LABS: ALB/GLOB RATIO 1.1 (1.0-2.1); ALKALINE PHOSPHATASE 100 U/L (38-126); ALT/SGPT 28 U/L (9-52); AST/SGOT 29 U/L (14-36); BILIRUBIN,TOTAL 0.4 mg/dl (0.2-1.3); BLOOD UREA NITROGEN 10 mg/dl (7-17); CALCIUM 10.3 mg/dL (8.4-10.2); CARBON DIOXIDE 31 mmol/L (22-30); CHLORIDE 101 mmol/L (98-107); GFR AFRICAN-AMERICAN > 60; GLUCOSE,RANDOM 111 mg/dL (65-105); POTASSIUM 4.3 MMOL/L (3.6-5.0); SODIUM 144 mmol/l (132-148); TOTAL PROTEIN 8.3 G/DL (6.3-8.2)
[2017-01-11 12:51] LABS: PARTIAL THROMBOPLASTIN TIME 26.1 SECONDS (23.3-32.5)
[2017-01-11] MEDS: Enoxaparin 40 mg Syringe SC SCH (14:31)
[2017-01-12] MEDS: Oxycodone/Acetaminophen 5/325 mg Tab PO PRN ×6 (00:38→23:05)
[2017-01-12] MEDS: Alum-Mag Hydrox-Simethicone Susp (30 mL) PO PRN ×5 (05:50→23:05)
[2017-01-12] MEDS: Omega-3-Acid Ethyl Esters 1 GM Cap PO SCH (09:00)
[2017-01-12] MEDS: Enoxaparin 40 mg Syringe SC SCH (09:02)
[2017-01-12] MEDS: oxyCODONE 10 mg ER Tab (oxyCONTIN) PO SCH ×2 (09:07→20:45)
[2017-01-12] MEDS: EPOETIN ALFA 10,000 UNIT/ML ML SC SCH (09:11)
[2017-01-12] MEDS ORDERED: Simethicone 80 mg Chewtab PO PRN (10:18)
[2017-01-12] MEDS: Simethicone 80 mg Chewtab PO SCH ×3 (10:41→17:06)
[2017-01-12] MEDS: Lidocaine 5% Patch TD SCH (10:41)
[2017-01-12] MEDS: Calcium-Vit D 500 mg-200 Units Tab UD PO SCH (13:25)
--- NOTE | 2017-01-12 15:35 | CP.PCM.PN ---
Subjective - Date & Time of Evaluation Date of Evaluation: 01/12/17 Time of Evaluation: 12:15 - Subjective Subjective: F/U L TKR Pt c/o of pain in R shoulder, L knee pain improved. Objective - Vital Signs/Intake and Output Vital Signs (last 24 hours): Temp Pulse Resp BP Pulse Ox 97.9 F 92 H 20 138/80 100 01/12/17 08:27 01/12/17 08:27 01/12/17 08:27 01/12/17 08:27 01/12/17 08:27 - Medications Medications: Current Medications Acetaminophen (Tylenol 325mg Tab) 650 mg PO Q4 PRN PRN Reason: Fever >100.4 F Al Hydrox/Mg Hydrox/Simethicone (Maalox Plus 30 Ml) 30 ml PO Q4 PRN PRN Reason: Indigestion / Heartburn Last Admin: 01/12/17 15:29 Dose: 30 ml Aspirin (Ecotrin) 81 mg PO DAILY [facility] Last Admin: 01/12/17 09:00 Dose: 81 mg Benzocaine/Menthol (Cepacol Sore Throat) 1 matt PO Q4 PRN PRN Reason: Sore Throat Last Admin: 01/06/17 13:10 Dose: 1 matt Calcium/Vitamin D (Oyster Shell Calcium/Vitamin D 500 Mg-200 Iu) 1 tab PO DAILY @1100 [facility] Last Admin: 01/12/17 13:25 Dose: 1 tab Clonazepam (Klonopin) 0.5 mg PO BID [facility] Last Admin: 01/12/17 09:00 Dose: 0.5 mg Docusate Sodium (Colace) 100 mg PO TID [facility] Last Admin: 01/12/17 13:24 Dose: 100 mg Enoxaparin Sodium (Lovenox) 40 mg SC DAILY [facility] PRN Reason: Protocol Last Admin: 01/12/17 09:02 Dose: 40 mg Epoetin Osito (Procrit) 10,000 unit SC MWF [facility] Last Admin: 01/12/17 09:11 Dose: 10,000 unit Ergocalciferol (Drisdol 50,000 Intl Units Cap) 1 cap PO QWK [facility] Ferrous Sulfate (Feosol) 325 mg PO BID [facility] Last Admin: 01/12/17 09:00 Dose: 325 mg Lidocaine (Lidoderm) 1 ea TD DAILY [facility] Last Admin: 01/12/17 10:41 Dose: 1 ea Dhptw-[id number] Ethyl Esters (Lovaza) 1 gm PO DAILY [facility] Last Admin: 01/12/17 09:00 Dose: 1 gm Oxybutynin Chloride (Ditropan Tab) 5 mg PO BID [facility] Last Admin: 01/12/17 09:00 Dose: 5 mg Oxycodone HCl (Oxycontin Extended Release Tab) 10 mg PO Q12 [facility] Stop: 01/12/17 21:01 Last Admin: 01/12/17 09:07 Dose: 10 mg Oxycodone/Acetaminophen (Percocet 5/325 Mg Tab) 1 tab PO Q4 PRN PRN Reason: Pain, severe (8-10) Stop: 01/15/17 14:55 Last Admin: 01/12/17 15:19 Dose: 1 tab Rivastigmine (Exelon 9.5 Mg/24 Hr Patch) 1 patch TD DAILY [facility] Last Admin: 01/12/17 09:01 Dose: 1 patch Simethicone (Mylicon Chew Tab) 80 mg PO TID [facility] Last Admin: 01/12/17 13:25 Dose: 80 mg Tizanidine HCl (Zanaflex) 4 mg PO TID [facility] Last Admin: 01/12/17 15:22 Dose: 4 mg Zolpidem Tartrate (Ambien) 5 mg PO HS [facility] Last Admin: 01/11/17 22:03 Dose: 5 mg - Labs Labs: 01/11/17 12:10 01/11/17 12:10 PT 10.8 SECONDS (9.6-11.2) 01/11/17 12:10 INR 1.04 (0.92-1.08) 01/11/17 12:10 APTT 26.1 SECONDS (23.3-32.5) 01/11/17 12:10 - Constitutional Appears: No Acute Distress - Head Exam Head Exam: NORMAL INSPECTION - Eye Exam Eye Exam: PERRL - ENT Exam ENT Exam: Normal Oropharynx - Neck Exam Neck Exam: Normal Inspection - Respiratory Exam Respiratory Exam: NORMAL BREATHING PATTERN - Cardiovascular Exam Cardiovascular Exam: REGULAR RHYTHM - GI/Abdominal Exam GI & Abdominal Exam: Soft, Normal Bowel Sounds - Extremities Exam Extremities Exam: Tenderness (R shoulder. L knee mild tenderness on palpation, jak in place.) Additional comments: S/P L TKR, neuromuscular distal status good. - Back Exam Back Exam: NORMAL INSPECTION - Neurological Exam Neurological Exam: Alert, Oriented x3 - Psychiatric Exam Psychiatric exam: Anxious, Depressed - Skin Skin Exam: Warm Assessment and Plan (1) Status post total knee replacement, left Status: Acute (2) Postoperative pain, acute, knee Status: Acute (3) Anemia Status: Acute (4) Esophageal reflux Status: Acute (5) Anxious depression Status: Chronic (6) Osteoporosis Status: Chronic (7) HLD (hyperlipidemia) Status: Chronic (8) DVT prophylaxis Status: Acute - Assessment and Plan (Free Text) Plan: Continue Oxycodone, Lovenox and current Tx, add Lidoderm patch to R shoulder.
[2017-01-13] MEDS: Alum-Mag Hydrox-Simethicone Susp (30 mL) PO PRN ×4 (03:06→18:11)
[2017-01-13] MEDS: Oxycodone/Acetaminophen 5/325 mg Tab PO PRN ×5 (03:06→23:12)
[2017-01-13] MEDS: Lidocaine 5% Patch TD SCH (08:38)
[2017-01-13] MEDS: Enoxaparin 40 mg Syringe SC SCH (08:39)
[2017-01-13] MEDS: Omega-3-Acid Ethyl Esters 1 GM Cap PO SCH (08:39)
[2017-01-13] MEDS: Simethicone 80 mg Chewtab PO SCH ×3 (08:39→16:10)
[2017-01-13] MEDS ORDERED: Lidocaine 5% Patch TD SCH (09:00)
[2017-01-13] MEDS: Calcium-Vit D 500 mg-200 Units Tab UD PO SCH (12:44)
--- NOTE | 2017-01-13 15:23 | CP.PCM.PN ---
Subjective - Date & Time of Evaluation Date of Evaluation: 01/13/17 Time of Evaluation: 11:10 - Subjective Subjective: F/U L TKR Pt c/o of pain in L knee lateral area but is doing well with PT and CP machine, walking with the walker. R shoulder pain improved with Lidoderm patch. Objective - Vital Signs/Intake and Output Vital Signs (last 24 hours): Temp Pulse Resp BP Pulse Ox 97.5 F L 62 20 123/67 96 01/13/17 08:24 01/13/17 08:24 01/13/17 08:24 01/13/17 08:24 01/13/17 08:24 - Medications Medications: Current Medications Acetaminophen (Tylenol 325mg Tab) 650 mg PO Q4 PRN PRN Reason: Fever >100.4 F Al Hydrox/Mg Hydrox/Simethicone (Maalox Plus 30 Ml) 30 ml PO Q4 PRN PRN Reason: Indigestion / Heartburn Last Admin: 01/13/17 13:24 Dose: 30 ml Aspirin (Ecotrin) 81 mg PO DAILY [facility] Last Admin: 01/13/17 08:37 Dose: 81 mg Benzocaine/Menthol (Cepacol Sore Throat) 1 matt PO Q4 PRN PRN Reason: Sore Throat Last Admin: 01/06/17 13:10 Dose: 1 matt Calcium/Vitamin D (Oyster Shell Calcium/Vitamin D 500 Mg-200 Iu) 1 tab PO DAILY @1100 [facility] Last Admin: 01/13/17 12:44 Dose: 1 tab Clonazepam (Klonopin) 0.5 mg PO BID [facility] Last Admin: 01/13/17 08:45 Dose: 0.5 mg Docusate Sodium (Colace) 100 mg PO TID [facility] Last Admin: 01/13/17 12:44 Dose: 100 mg Enoxaparin Sodium (Lovenox) 40 mg SC DAILY [facility] PRN Reason: Protocol Last Admin: 01/13/17 08:39 Dose: 40 mg Epoetin Osito (Procrit) 10,000 unit SC MWF [facility] Last Admin: 01/12/17 09:11 Dose: 10,000 unit Ergocalciferol (Drisdol 50,000 Intl Units Cap) 1 cap PO QWK [facility] Last Admin: 01/12/17 17:07 Dose: 1 cap Ferrous Sulfate (Feosol) 325 mg PO BID [facility] Last Admin: 01/13/17 08:38 Dose: 325 mg Lidocaine (Lidoderm) 1 ea TD DAILY [facility] Last Admin: 01/13/17 08:38 Dose: 1 ea Lidocaine (Lidoderm) 1 ea TD DAILY [facility] Joqji-1-Jgyg Ethyl Esters (Lovaza) 1 gm PO DAILY [facility] Last Admin: 01/13/17 08:39 Dose: 1 gm Oxybutynin Chloride (Ditropan Tab) 5 mg PO BID [facility] Last Admin: 01/13/17 08:36 Dose: 5 mg Oxycodone HCl (Oxycontin Extended Release Tab) 10 mg PO Q12 [facility] Stop: 01/16/17 21:01 Oxycodone/Acetaminophen (Percocet 5/325 Mg Tab) 1 tab PO Q4 PRN PRN Reason: Pain, severe (8-10) Stop: 01/15/17 14:55 Last Admin: 01/13/17 13:22 Dose: 1 tab Rivastigmine (Exelon 9.5 Mg/24 Hr Patch) 1 patch TD DAILY [facility] Last Admin: 01/13/17 08:37 Dose: 1 patch Simethicone (Mylicon Chew Tab) 80 mg PO TID [facility] Last Admin: 01/13/17 12:44 Dose: 80 mg Tizanidine HCl (Zanaflex) 4 mg PO TID [facility] Last Admin: 01/13/17 12:45 Dose: 4 mg Zolpidem Tartrate (Ambien) 5 mg PO HS [facility] Last Admin: 01/12/17 21:37 Dose: 5 mg - Labs Labs: 01/11/17 12:10 01/11/17 12:10 PT 10.8 SECONDS (9.6-11.2) 01/11/17 12:10 INR 1.04 (0.92-1.08) 01/11/17 12:10 APTT 26.1 SECONDS (23.3-32.5) 01/11/17 12:10 - Constitutional Appears: No Acute Distress - Head Exam Head Exam: NORMAL INSPECTION - Eye Exam Eye Exam: PERRL - ENT Exam ENT Exam: Normal Oropharynx - Neck Exam Neck Exam: Normal Inspection - Respiratory Exam Respiratory Exam: NORMAL BREATHING PATTERN - Cardiovascular Exam Cardiovascular Exam: REGULAR RHYTHM - GI/Abdominal Exam GI & Abdominal Exam: Soft, Normal Bowel Sounds - Extremities Exam Extremities Exam: Tenderness (mild L knee on palpation, less tenderness R shoulder.) - Back Exam Back Exam: NORMAL INSPECTION - Neurological Exam Neurological Exam: Alert, Oriented x3 Additional comments: S/P L TKR, neuromuscular distal status good. - Psychiatric Exam Psychiatric exam: Anxious, Depressed - Skin Skin Exam: Warm Assessment and Plan (1) Status post total knee replacement, left Status: Acute (2) Postoperative pain, acute, knee Status: Acute (3) Anemia Status: Acute (4) Esophageal reflux Status: Acute (5) Anxious depression Status: Chronic (6) Osteoporosis Status: Chronic (7) HLD (hyperlipidemia) Status: Chronic (8) DVT prophylaxis Status: Acute - Assessment and Plan (Free Text) Plan: Continue Oxycontin, Percocet, add Lidoderm patch and rest of Tx and PT.
[2017-01-13] MEDS: oxyCODONE 10 mg ER Tab (oxyCONTIN) PO SCH (21:22)
[2017-01-14] MEDS: Oxycodone/Acetaminophen 5/325 mg Tab PO PRN ×4 (04:25→21:22)
[2017-01-14] MEDS: Simethicone 80 mg Chewtab PO SCH ×3 (09:03→17:14)
[2017-01-14] MEDS: Lidocaine 5% Patch TD SCH ×2 (09:03→09:08)
[2017-01-14] MEDS: Omega-3-Acid Ethyl Esters 1 GM Cap PO SCH (09:04)
[2017-01-14] MEDS: Enoxaparin 40 mg Syringe SC SCH (09:06)
[2017-01-14] MEDS: EPOETIN ALFA 10,000 UNIT/ML ML SC SCH (09:09)
[2017-01-14] MEDS: oxyCODONE 10 mg ER Tab (oxyCONTIN) PO SCH ×2 (09:12→20:23)
[2017-01-14] MEDS: Calcium-Vit D 500 mg-200 Units Tab UD PO SCH (12:47)
--- NOTE | 2017-01-14 13:14 | RAD ---
PROCEDURE: Left knee dated 01/14/2017. Three views left knee performed. HISTORY: Pain. COMPARISON: Comparison made with prior radiographs 12/29/2016 FINDINGS: BONES: Current study re- demonstrates left total knee replacement. Hardware appears intact the. Satisfactory alignment. Interval removal drainage catheter. Postoperative subcutaneous emphysema is no longer visible and presumably has undergone resorption. Multiple metallic skin closure jak again noted. Small suprapatellar joint effusion. JOINTS: As above JOINT EFFUSION: As above OTHER FINDINGS: None. IMPRESSION: Total knee replacement. Satisfactory alignment. Improved postoperative changes as above. Small suprapatellar joint effusion.
[2017-01-14] MEDS: Alum-Mag Hydrox-Simethicone Susp (30 mL) PO PRN (13:48)
--- NOTE | 2017-01-14 14:59 | CP.PCM.PN ---
Subjective - Date & Time of Evaluation Date of Evaluation: 01/14/17 Time of Evaluation: 10:20 - Subjective Subjective: F/U L TKR Pt c/o of pain in L knee. Objective - Vital Signs/Intake and Output Vital Signs (last 24 hours): Temp Pulse Resp BP Pulse Ox 97.6 F 76 20 147/76 100 01/14/17 10:00 01/14/17 10:00 01/14/17 10:00 01/14/17 10:00 01/14/17 10:00 - Medications Medications: Current Medications Acetaminophen (Tylenol 325mg Tab) 650 mg PO Q4 PRN PRN Reason: Fever >100.4 F Al Hydrox/Mg Hydrox/Simethicone (Maalox Plus 30 Ml) 30 ml PO Q4 PRN PRN Reason: Indigestion / Heartburn Last Admin: 01/14/17 13:48 Dose: 30 ml Aspirin (Ecotrin) 81 mg PO DAILY [facility] Last Admin: 01/14/17 09:07 Dose: 81 mg Benzocaine/Menthol (Cepacol Sore Throat) 1 matt PO Q4 PRN PRN Reason: Sore Throat Last Admin: 01/06/17 13:10 Dose: 1 matt Calcium/Vitamin D (Oyster Shell Calcium/Vitamin D 500 Mg-200 Iu) 1 tab PO DAILY @1100 [facility] Last Admin: 01/14/17 12:47 Dose: 1 tab Clonazepam (Klonopin) 0.5 mg PO BID [facility] Docusate Sodium (Colace) 100 mg PO TID [facility] Last Admin: 01/14/17 12:47 Dose: 100 mg Epoetin Osito (Procrit) 10,000 unit SC MWF [facility] Last Admin: 01/14/17 09:09 Dose: 10,000 unit Ergocalciferol (Drisdol 50,000 Intl Units Cap) 1 cap PO QWK [facility] Last Admin: 01/12/17 17:07 Dose: 1 cap Ferrous Sulfate (Feosol) 325 mg PO BID [facility] Last Admin: 01/14/17 09:05 Dose: 325 mg Lidocaine (Lidoderm) 1 ea TD DAILY [facility] Last Admin: 01/14/17 09:08 Dose: 1 ea Lidocaine (Lidoderm) 1 ea TD DAILY [facility] Last Admin: 01/14/17 09:03 Dose: 1 ea Pfegv-1-Vtsr Ethyl Esters (Lovaza) 1 gm PO DAILY [facility] Last Admin: 01/14/17 09:04 Dose: 1 gm Oxybutynin Chloride (Ditropan Tab) 5 mg PO BID [facility] Last Admin: 01/14/17 09:07 Dose: 5 mg Oxycodone HCl (Oxycontin Extended Release Tab) 10 mg PO Q12 [facility] Stop: 01/16/17 21:01 Last Admin: 01/14/17 09:12 Dose: 10 mg Oxycodone/Acetaminophen (Percocet 5/325 Mg Tab) 1 tab PO Q4 PRN PRN Reason: Pain, severe (8-10) Stop: 01/15/17 14:55 Last Admin: 01/14/17 13:47 Dose: 1 tab Rivastigmine (Exelon 9.5 Mg/24 Hr Patch) 1 patch TD DAILY [facility] Last Admin: 01/14/17 09:04 Dose: 1 patch Simethicone (Mylicon Chew Tab) 80 mg PO TID [facility] Last Admin: 01/14/17 09:03 Dose: 80 mg Tizanidine HCl (Zanaflex) 4 mg PO TID [facility] Last Admin: 01/14/17 09:05 Dose: 4 mg Zolpidem Tartrate (Ambien) 5 mg PO HS [facility] Last Admin: 01/13/17 22:32 Dose: 5 mg - Labs Labs: 01/11/17 12:10 01/11/17 12:10 PT 10.8 SECONDS (9.6-11.2) 01/11/17 12:10 INR 1.04 (0.92-1.08) 01/11/17 12:10 APTT 26.1 SECONDS (23.3-32.5) 01/11/17 12:10 - Constitutional Appears: No Acute Distress - Head Exam Head Exam: NORMAL INSPECTION - Eye Exam Eye Exam: PERRL - ENT Exam ENT Exam: Normal Oropharynx - Neck Exam Neck Exam: Normal Inspection - Respiratory Exam Respiratory Exam: NORMAL BREATHING PATTERN - Cardiovascular Exam Cardiovascular Exam: REGULAR RHYTHM - GI/Abdominal Exam GI & Abdominal Exam: Soft, Normal Bowel Sounds - Extremities Exam Extremities Exam: Tenderness (L knee on palpation, tenderness R shoulder.) Additional comments: S/P L TKR, neuromuscular distal status good. - Back Exam Back Exam: NORMAL INSPECTION - Neurological Exam Neurological Exam: Alert, Oriented x3 - Psychiatric Exam Psychiatric exam: Agitated, Anxious - Skin Skin Exam: Warm Assessment and Plan (1) Status post total knee replacement, left Status: Acute (2) Postoperative pain, acute, knee Status: Acute (3) Anemia Status: Acute (4) Esophageal reflux Status: Acute (5) Anxious depression Status: Chronic (6) Osteoporosis Status: Chronic (7) HLD (hyperlipidemia) Status: Chronic (8) DVT prophylaxis Status: Acute - Assessment and Plan (Free Text) Plan: Continue current Tx, f/u Orthopedic.
[2017-01-15] MEDS: Oxycodone/Acetaminophen 5/325 mg Tab PO PRN ×4 (03:48→20:20)
[2017-01-15] MEDS: Simethicone 80 mg Chewtab PO SCH ×3 (08:28→16:31)
[2017-01-15] MEDS: Omega-3-Acid Ethyl Esters 1 GM Cap PO SCH (08:29)
[2017-01-15] MEDS: Lidocaine 5% Patch TD SCH ×2 (08:30→08:31)
[2017-01-15] MEDS: oxyCODONE 10 mg ER Tab (oxyCONTIN) PO SCH ×2 (10:04→21:34)
[2017-01-15] MEDS: Calcium-Vit D 500 mg-200 Units Tab UD PO SCH (14:04)
--- NOTE | 2017-01-15 19:00 | CP.PCM.PN ---
Subjective - Date & Time of Evaluation Date of Evaluation: 01/15/17 Time of Evaluation: 12:10 - Subjective Subjective: F/U L TKR. Pt c/o f pain in L knee. Objective - Vital Signs/Intake and Output Vital Signs (last 24 hours): Temp Pulse Resp BP Pulse Ox 97.5 F L 64 20 99/55 L 96 01/15/17 16:48 01/15/17 16:48 01/15/17 16:48 01/15/17 16:48 01/15/17 16:48 - Medications Medications: Current Medications Acetaminophen (Tylenol 325mg Tab) 650 mg PO Q4 PRN PRN Reason: Fever >100.4 F Al Hydrox/Mg Hydrox/Simethicone (Maalox Plus 30 Ml) 30 ml PO Q4 PRN PRN Reason: Indigestion / Heartburn Last Admin: 01/14/17 13:48 Dose: 30 ml Aspirin (Ecotrin) 81 mg PO DAILY [facility] Last Admin: 01/15/17 08:30 Dose: 81 mg Benzocaine/Menthol (Cepacol Sore Throat) 1 matt PO Q4 PRN PRN Reason: Sore Throat Last Admin: 01/06/17 13:10 Dose: 1 matt Calcium/Vitamin D (Oyster Shell Calcium/Vitamin D 500 Mg-200 Iu) 1 tab PO DAILY @1100 [facility] Last Admin: 01/15/17 14:04 Dose: 1 tab Clonazepam (Klonopin) 0.5 mg PO BID [facility] Last Admin: 01/15/17 17:52 Dose: Not Given Docusate Sodium (Colace) 100 mg PO TID [facility] Last Admin: 01/15/17 16:30 Dose: 100 mg Epoetin Osito (Procrit) 10,000 unit SC MWF [facility] Last Admin: 01/14/17 09:09 Dose: 10,000 unit Ergocalciferol (Drisdol 50,000 Intl Units Cap) 1 cap PO QWK [facility] Last Admin: 01/12/17 17:07 Dose: 1 cap Ferrous Sulfate (Feosol) 325 mg PO BID [facility] Last Admin: 01/15/17 16:30 Dose: 325 mg Lidocaine (Lidoderm) 1 ea TD DAILY [facility] Last Admin: 01/15/17 08:30 Dose: 1 ea Lidocaine (Lidoderm) 1 ea TD DAILY [facility] Last Admin: 01/15/17 08:31 Dose: 1 ea [id number] Ethyl Esters (Lovaza) 1 gm PO DAILY [facility] Last Admin: 01/15/17 08:29 Dose: 1 gm Oxybutynin Chloride (Ditropan Tab) 5 mg PO BID [facility] Last Admin: 01/15/17 16:31 Dose: 5 mg Oxycodone HCl (Oxycontin Extended Release Tab) 10 mg PO Q12 [facility] Stop: 01/16/17 21:01 Last Admin: 01/15/17 10:04 Dose: 10 mg Rivastigmine (Exelon 9.5 Mg/24 Hr Patch) 1 patch TD DAILY [facility] Last Admin: 01/15/17 08:29 Dose: 1 patch Simethicone (Mylicon Chew Tab) 80 mg PO TID [facility] Last Admin: 01/15/17 16:31 Dose: 80 mg Tizanidine HCl (Zanaflex) 4 mg PO TID [facility] Last Admin: 01/15/17 16:31 Dose: 4 mg Zolpidem Tartrate (Ambien) 5 mg PO HS [facility] Last Admin: 01/14/17 22:40 Dose: 5 mg - Labs Labs: 01/11/17 12:10 01/11/17 12:10 PT 10.8 SECONDS (9.6-11.2) 01/11/17 12:10 INR 1.04 (0.92-1.08) 01/11/17 12:10 APTT 26.1 SECONDS (23.3-32.5) 01/11/17 12:10 - Constitutional Appears: No Acute Distress - Head Exam Head Exam: NORMAL INSPECTION - Eye Exam Eye Exam: PERRL - ENT Exam ENT Exam: Normal Oropharynx - Neck Exam Neck Exam: Normal Inspection - Respiratory Exam Respiratory Exam: NORMAL BREATHING PATTERN - Cardiovascular Exam Cardiovascular Exam: REGULAR RHYTHM - GI/Abdominal Exam GI & Abdominal Exam: Soft, Normal Bowel Sounds - Extremities Exam Extremities Exam: Tenderness (R shoulder. Mild tenderness L knee on palpation, jak in place.) Additional comments: S/P L TKR, neuromuscular distal status good. - Back Exam Back Exam: NORMAL INSPECTION - Neurological Exam Neurological Exam: Alert, Oriented x3 - Psychiatric Exam Psychiatric exam: Anxious, Depressed - Skin Skin Exam: Warm Assessment and Plan (1) Status post total knee replacement, left Status: Acute (2) Postoperative pain, acute, knee Status: Acute (3) Anemia Status: Acute (4) Esophageal reflux Status: Acute (5) Anxious depression Status: Chronic (6) Osteoporosis Status: Chronic (7) HLD (hyperlipidemia) Status: Chronic (8) DVT prophylaxis Status: Acute - Assessment and Plan (Free Text) Plan: F/U X-Ray L knee, F/U orthopedic
[2017-01-16] MEDS: Alum-Mag Hydrox-Simethicone Susp (30 mL) PO PRN ×5 (04:13→23:08)
[2017-01-16] MEDS: Oxycodone/Acetaminophen 5/325 mg Tab PO PRN ×5 (04:13→23:08)
--- NOTE | 2017-01-16 08:20 | CP.PCM.PN ---
Subjective - Date & Time of Evaluation Date of Evaluation: 01/16/17 Time of Evaluation: 08:10 - Subjective Subjective: S- pt with minimal post op discomfort/ pt with I feel exagerrated response to pain Objective - Vital Signs/Intake and Output Vital Signs (last 24 hours): Temp Pulse Resp BP Pulse Ox 98.1 F 72 20 96/59 L 96 01/15/17 20:44 01/15/17 20:44 01/15/17 20:44 01/15/17 20:44 01/15/17 20:44 - Medications Medications: Current Medications Acetaminophen (Tylenol 325mg Tab) 650 mg PO Q4 PRN PRN Reason: Fever >100.4 F Al Hydrox/Mg Hydrox/Simethicone (Maalox Plus 30 Ml) 30 ml PO Q4 PRN PRN Reason: Indigestion / Heartburn Last Admin: 01/16/17 04:13 Dose: 30 ml Aspirin (Ecotrin) 81 mg PO DAILY [facility] Last Admin: 01/15/17 08:30 Dose: 81 mg Benzocaine/Menthol (Cepacol Sore Throat) 1 matt PO Q4 PRN PRN Reason: Sore Throat Last Admin: 01/06/17 13:10 Dose: 1 matt Calcium/Vitamin D (Oyster Shell Calcium/Vitamin D 500 Mg-200 Iu) 1 tab PO DAILY @1100 [facility] Last Admin: 01/15/17 14:04 Dose: 1 tab Clonazepam (Klonopin) 0.5 mg PO BID [facility] Last Admin: 01/15/17 17:52 Dose: Not Given Docusate Sodium (Colace) 100 mg PO TID [facility] Last Admin: 01/15/17 16:30 Dose: 100 mg Epoetin Osito (Procrit) 10,000 unit SC MWF [facility] Last Admin: 01/14/17 09:09 Dose: 10,000 unit Ergocalciferol (Drisdol 50,000 Intl Units Cap) 1 cap PO QWK [facility] Last Admin: 01/12/17 17:07 Dose: 1 cap Ferrous Sulfate (Feosol) 325 mg PO BID [facility] Last Admin: 01/15/17 16:30 Dose: 325 mg Lidocaine (Lidoderm) 1 ea TD DAILY [facility] Last Admin: 01/15/17 08:30 Dose: 1 ea Lidocaine (Lidoderm) 1 ea TD DAILY [facility] Last Admin: 01/15/17 08:31 Dose: 1 ea [id number] Ethyl Esters (Lovaza) 1 gm PO DAILY [facility] Last Admin: 01/15/17 08:29 Dose: 1 gm Oxybutynin Chloride (Ditropan Tab) 5 mg PO BID [facility] Last Admin: 01/15/17 16:31 Dose: 5 mg Oxycodone HCl (Oxycontin Extended Release Tab) 10 mg PO Q12 [facility] Stop: 01/16/17 21:01 Last Admin: 01/15/17 21:34 Dose: 10 mg Oxycodone/Acetaminophen (Percocet 5/325 Mg Tab) 1 tab PO Q4 PRN PRN Reason: Pain, severe (8-10) Stop: 01/18/17 20:08 Last Admin: 01/16/17 04:13 Dose: 1 tab Rivastigmine (Exelon 9.5 Mg/24 Hr Patch) 1 patch TD DAILY [facility] Last Admin: 01/15/17 08:29 Dose: 1 patch Simethicone (Mylicon Chew Tab) 80 mg PO TID [facility] Last Admin: 01/15/17 16:31 Dose: 80 mg Tizanidine HCl (Zanaflex) 4 mg PO TID [facility] Last Admin: 01/15/17 16:31 Dose: 4 mg Zolpidem Tartrate (Ambien) 5 mg PO HS [facility] Last Admin: 01/15/17 22:17 Dose: 5 mg - Labs Labs: 01/11/17 12:10 01/11/17 12:10 PT 10.8 SECONDS (9.6-11.2) 01/11/17 12:10 INR 1.04 (0.92-1.08) 01/11/17 12:10 APTT 26.1 SECONDS (23.3-32.5) 01/11/17 12:10 - Additional Findings Additional findings: oBJECTIVE SYSTEMIC-= WNL Musculoskeletal stance/gait- defrred L knee wound benign N/V intact no draiage no calf tenderness/no Homans orthopedically stable Assessment and Plan - Assessment and Plan (Free Text) Assessment: A- s/p L TKR- normal post op course P- continue physical therapy pain management orthopedically stable for d/c
[2017-01-16] MEDS: EPOETIN ALFA 10,000 UNIT/ML ML SC SCH (08:45)
[2017-01-16] MEDS: Simethicone 80 mg Chewtab PO SCH ×3 (08:47→17:34)
[2017-01-16] MEDS: oxyCODONE 10 mg ER Tab (oxyCONTIN) PO SCH ×2 (08:47→21:08)
[2017-01-16] MEDS: Omega-3-Acid Ethyl Esters 1 GM Cap PO SCH (08:47)
[2017-01-16] MEDS: Lidocaine 5% Patch TD SCH ×2 (08:48→08:49)
[2017-01-16] MEDS: Calcium-Vit D 500 mg-200 Units Tab UD PO SCH (11:57)
[2017-01-16 14:39] LABS: HEMATOCRIT 35.5 % (34.0-47.0); MEAN CELL VOLUME 87.5 fl (81.0-99.0); MEAN CORPUSCULAR HEMOGLOBIN 28.3 pg (27.0-31.0); MEAN CORPUSCULAR HGB CONC 32.4 g/dL (33.0-37.0); RED CELL DISTRIBUTION WIDTH 15.9 % (11.5-14.5); WHITE BLOOD COUNT 5.3 K/uL (4.8-10.8)
[2017-01-16 14:53] LABS: BLOOD UREA NITROGEN 13 mg/dl (7-17); CALCIUM 9.5 mg/dL (8.4-10.2); CARBON DIOXIDE 30 mmol/L (22-30); CHLORIDE 103 mmol/L (98-107); GFR AFRICAN-AMERICAN > 60; GLUCOSE,RANDOM 103 mg/dL (65-105); POTASSIUM 4.5 MMOL/L (3.6-5.0); SODIUM 141 mmol/l (132-148)
[2017-01-16] MEDS: Enoxaparin 40 mg Syringe SC SCH (17:34)
--- NOTE | 2017-01-16 18:05 | CP.PCM.PN ---
Subjective - Date & Time of Evaluation Date of Evaluation: 01/16/17 Time of Evaluation: 10:20 - Subjective Subjective: F/U L TKR Pt c/o of pain in L knee Objective - Vital Signs/Intake and Output Vital Signs (last 24 hours): Temp Pulse Resp BP Pulse Ox 98.1 F 62 20 121/71 97 01/16/17 16:46 01/16/17 16:46 01/16/17 16:46 01/16/17 16:46 01/16/17 16:46 - Medications Medications: Current Medications Acetaminophen (Tylenol 325mg Tab) 650 mg PO Q4 PRN PRN Reason: Fever >100.4 F Al Hydrox/Mg Hydrox/Simethicone (Maalox Plus 30 Ml) 30 ml PO Q4 PRN PRN Reason: Indigestion / Heartburn Last Admin: 01/16/17 14:16 Dose: 30 ml Aspirin (Ecotrin) 81 mg PO DAILY [facility] Last Admin: 01/16/17 08:47 Dose: 81 mg Benzocaine/Menthol (Cepacol Sore Throat) 1 matt PO Q4 PRN PRN Reason: Sore Throat Last Admin: 01/06/17 13:10 Dose: 1 matt Calcium/Vitamin D (Oyster Shell Calcium/Vitamin D 500 Mg-200 Iu) 1 tab PO DAILY @1100 [facility] Last Admin: 01/16/17 11:57 Dose: 1 tab Clonazepam (Klonopin) 0.5 mg PO BID [facility] Last Admin: 01/16/17 17:36 Dose: 0.5 mg Docusate Sodium (Colace) 100 mg PO TID [facility] Last Admin: 01/16/17 17:34 Dose: 100 mg Enoxaparin Sodium (Lovenox) 40 mg SC DAILY [facility] PRN Reason: Protocol Last Admin: 01/16/17 17:34 Dose: 40 mg Epoetin Osito (Procrit) 10,000 unit SC MWF [facility] Last Admin: 01/16/17 08:45 Dose: 10,000 unit Ergocalciferol (Drisdol 50,000 Intl Units Cap) 1 cap PO QWK [facility] Last Admin: 01/12/17 17:07 Dose: 1 cap Ferrous Sulfate (Feosol) 325 mg PO BID [facility] Last Admin: 01/16/17 17:34 Dose: 325 mg Lidocaine (Lidoderm) 1 ea TD DAILY [facility] Last Admin: 01/16/17 08:48 Dose: 1 ea Lidocaine (Lidoderm) 1 ea TD DAILY [facility] Last Admin: 01/16/17 08:49 Dose: 1 ea [id number]-[id number] Ethyl Esters (Lovaza) 1 gm PO DAILY [facility] Last Admin: 01/16/17 08:47 Dose: 1 gm Oxybutynin Chloride (Ditropan Tab) 5 mg PO BID [facility] Last Admin: 01/16/17 08:48 Dose: 5 mg Oxycodone HCl (Oxycontin Extended Release Tab) 10 mg PO Q12 [facility] Stop: 01/16/17 21:01 Last Admin: 01/16/17 08:47 Dose: 10 mg Oxycodone/Acetaminophen (Percocet 5/325 Mg Tab) 1 tab PO Q4 PRN PRN Reason: Pain, severe (8-10) Stop: 01/18/17 20:08 Last Admin: 01/16/17 14:15 Dose: 1 tab Rivastigmine (Exelon 9.5 Mg/24 Hr Patch) 1 patch TD DAILY [facility] Last Admin: 01/16/17 08:46 Dose: 1 patch Simethicone (Mylicon Chew Tab) 80 mg PO TID [facility] Last Admin: 01/16/17 17:34 Dose: 80 mg Tizanidine HCl (Zanaflex) 4 mg PO TID [facility] Last Admin: 01/16/17 17:34 Dose: 4 mg Zolpidem Tartrate (Ambien) 5 mg PO HS [facility] Last Admin: 01/15/17 22:17 Dose: 5 mg - Labs Labs: 01/16/17 14:30 01/16/17 14:30 PT 11.2 SECONDS (9.6-11.2) 01/16/17 14:30 INR 1.08 (0.92-1.08) 01/16/17 14:30 APTT 26.1 SECONDS (23.3-32.5) 01/11/17 12:10 - Constitutional Appears: No Acute Distress - Head Exam Head Exam: NORMAL INSPECTION - Eye Exam Eye Exam: PERRL - ENT Exam ENT Exam: Normal Oropharynx - Neck Exam Neck Exam: Normal Inspection - Respiratory Exam Respiratory Exam: NORMAL BREATHING PATTERN - Cardiovascular Exam Cardiovascular Exam: REGULAR RHYTHM - GI/Abdominal Exam GI & Abdominal Exam: Soft, Normal Bowel Sounds - Extremities Exam Extremities Exam: Tenderness (Rshoulder. L knee mild tenderness on palpation.) Additional comments: S/P L TKR neuromuscular distal status good. - Back Exam Back Exam: NORMAL INSPECTION - Neurological Exam Neurological Exam: Alert, Oriented x3 - Psychiatric Exam Psychiatric exam: Anxious, Depressed - Skin Skin Exam: Warm Assessment and Plan (1) Status post total knee replacement, left Status: Acute (2) Postoperative pain, acute, knee Status: Acute (3) Anemia Status: Acute (4) Esophageal reflux Status: Acute (5) Anxious depression Status: Chronic (6) Osteoporosis Status: Chronic (7) HLD (hyperlipidemia) Status: Chronic (8) DVT prophylaxis Status: Acute - Assessment and Plan (Free Text) Plan: Continue Percocet, Lidoderm, Klonopin and rest of Tx.
[2017-01-16 20:11] VITALS: TEMP 98.2
[2017-01-17] MEDS: Alum-Mag Hydrox-Simethicone Susp (30 mL) PO PRN (05:34)
[2017-01-17] MEDS: Oxycodone/Acetaminophen 5/325 mg Tab PO PRN ×2 (05:34→09:08)
[2017-01-17] MEDS: Lidocaine 5% Patch TD SCH ×2 (08:29→08:31)
[2017-01-17] MEDS: Omega-3-Acid Ethyl Esters 1 GM Cap PO SCH (08:31)
[2017-01-17] MEDS: Enoxaparin 40 mg Syringe SC SCH (08:32)
[2017-01-17] MEDS: Simethicone 80 mg Chewtab PO SCH (08:32)
[2017-01-17 09:06] VITALS: BP 131/72; PULSE 66; O2SAT 99
== END 2017-01-17 11:30 | disposition home or self-care (01) | DRG 561 ==
LOC: H.TCU 01-02 15:16
PROVIDERS: ADMIT Internal Medicine Pulmonary Disease; ATTEND Internal Medicine Pulmonary Disease
PROC: F07Z9FZ Gait Training/Functional Ambulation Treatment using Assistive, Adaptive, Supportive or Protective Equipment (ICD-10-PCS; principal; 2017-01-02)
PROC: F07M6FZ Therapeutic Exercise Treatment of Musculoskeletal System - Whole Body using Assistive, Adaptive, Supportive or Protective Equipment (ICD-10-PCS; 2017-01-02)
PROC: F08Z4FZ Home Management Treatment using Assistive, Adaptive, Supportive or Protective Equipment (ICD-10-PCS; 2017-01-02)
DX: Z47.1 Aftercare following joint replacement surgery (principal); F03.90 Unspecified dementia, unspecified severity, without behavioral disturbance, psychotic disturbance, mood disturbance, and anxiety; D64.9 Anemia, unspecified; Z96.652 Presence of left artificial knee joint; K21.9 Gastro-esophageal reflux disease without esophagitis; Z90.710 Acquired absence of both cervix and uterus; E78.5 Hyperlipidemia, unspecified; F41.8 Other specified anxiety disorders; K59.00 Constipation, unspecified; M81.0 Age-related osteoporosis without current pathological fracture

== ENCOUNTER 2017-05-22 14:30 | Emergency (ER) | payer MEDICARE, MEDICAID ==
[2017-05-22 14:30] VITALS: BMI 32.1
[2017-05-22 14:34] VITALS: RESP 18
--- NOTE | 2017-05-22 14:59 | ED PDOC ---
Lower Extremity Pain/Injury Time Seen by Provider: 05/22/17 14:39 Chief Complaint (Nursing): Lower Extremity Problem/Injury Chief Complaint (Provider): Chronic Drainage Left knee History Per: Patient History/Exam Limitations: no limitations Current Symptoms Are (Timing): Still Present Additional Complaint(s): Christen Pollack, a 72 year old female, with a past medical history of depression presents to the ED with chronic left knee drainage. Patient is status post left knee replacement. She reports that she has had swelling but no fever or pain Past Medical History Reviewed: Historical Data, Nursing Documentation, Vital Signs Vital Signs: Last Vital Signs Temp 99.1 F 05/22/17 14:31 Pulse 70 05/22/17 14:31 Resp 18 05/22/17 14:31 BP 134/65 05/22/17 14:31 Pulse Ox 99 05/22/17 14:31 - Medical History PMH: Anxiety, Arthritis, Bipolar Disorder, Dementia, Depression, Gastritis, Osteoporosis Denies: Asthma, Atrial Fibrillation, CHF, COPD, Diabetes, HIV, HTN, Hypercholesterolemia, Chronic Kidney Disease, Seizures - Surgical History Surgical History: Denies: CABG, Pacemaker - Family History Family History: States: Unknown Family Hx Denies: CAD - Home Medications Home Medications: Ambulatory Orders Medication Instructions Recorded Ergocalciferol (Vitamin D2) 50,000 iu PO QWK 05/02/16 [Vitamin D2] Emuug-8-Hljq Ethyl Esters 1 GM 1 gm PO DAILY 05/02/16 [Lovaza] Omeprazole 40 mg PO DAILY 05/02/16 Oxybutynin [Ditropan Tab] 5 mg PO DAILY 05/02/16 Rivastigmine 9.5 mg/24 hr [Exelon 9.5 mg TD DAILY 05/02/16 9.5 mg/24 hr Patch] Tizanidine HCl [Zanaflex] 4 mg PO PRN PRN 05/02/16 Zolpidem [Ambien] 5 mg PO HS 05/02/16 Aspirin [Lo-Dose Aspirin EC] 81 mg PO DAILY 12/08/16 Clonazepam [Klonopin] 0.5 mg PO DAILY 12/08/16 Docusate [Colace] 100 mg PO BID 12/08/16 Ferrous Sulfate [Feosol] 325 mg PO DAILY 12/08/16 Acetaminophen/Oxycodone Hydr 1 tab PO Q6H PRN 12/29/16 [Percocet 10/325 mg Tab] Calcium Carbonate/Vitamin D3 1 each PO DAILY 12/29/16 [Calcium 500 + Vit D Caplet] Aluminum Hydroxide/Magnesium 30 ml PO Q4 PRN 01/02/17 [Maalox Plus 30 ml] Aspirin [Ecotrin] 81 mg PO DAILY 01/17/17 Mupirocin 2% Ointment [Bactroban 1 appl TP BID #1 tube 05/22/17 Ointment] - Allergies Allergies/Adverse Reactions: Allergies Allergy/AdvReac Type Severity Reaction Status Date / Time No Known Allergies Allergy Verified 01/02/17 15:15 Review of Systems ROS Statement: Except As Marked, All Systems Reviewed And Found Negative Constitutional: Negative for: Fever Musculoskeletal: Positive for: Other (Chronic left knee drainage) Physical Exam - Reviewed Nursing Documentation Reviewed: Yes Vital Signs Reviewed: Yes - Physical Exam Appears: Positive for: Non-toxic, No Acute Distress Head Exam: Positive for: ATRAUMATIC, NORMAL INSPECTION, NORMOCEPHALIC Skin: Positive for: Normal Color, Warm, Dry. Negative for: Rash Eye Exam: Positive for: Normal appearance, EOMI, PERRL. Negative for: Nystagmus ENT: Positive for: Normal ENT Inspection Neck: Positive for: Normal, Painless ROM, Supple Cardiovascular/Chest: Positive for: Regular Rate, Rhythm, Chest Non Tender. Negative for: Tachycardia Respiratory: Positive for: Normal Breath Sounds. Negative for: Wheezing, Respiratory Distress Gastrointestinal/Abdominal: Positive for: Normal Exam, Bowel Sounds, Soft. Negative for: Mass, Guarding, Rebound Back: Positive for: Normal Inspection. Negative for: L CVA Tenderness, R CVA Tenderness Extremity: Positive for: Swelling (Minimal swelling to left knee), Other (Scant serous drainage to superior wound; wound is approximately 1/2cm; no surrounding erythema; no warmth.). Negative for: Tenderness (NO tenderness to left knee), Deformity Neurologic/Psych: Positive for: Alert, Oriented - Laboratory Results Result Diagrams: 05/22/17 15:40 05/22/17 15:40 - ECG O2 Sat by Pulse Oximetry: 99 (RA) Pulse Ox Interpretation: Normal Medical Decision Making Medical Decision Makin Initial Impression: 72 y/o female presenting with chronic left knee drainage Initial Plan: * CMP * CBC * RAD Left Knee * Blood Culture * Wound Culture * Reevaluation Patient will be signed out to Dr. Andino at 1400. Scribe Attestation Documented by Rosalba Robbins acting as a scribe for Aries Duvall MD. Provider Attestation All medical record entries made by the Scribe were at my direction and personally dictated by me. I have reviewed the chart and agree that the record accurately reflects my personal performance of the history, physical exam, medical decision making, and the department course for this patient. I have also personally directed, reviewed, and agree with the discharge instructions and disposition. Disposition - Clinical Impression Clinical Impression: Wound dehiscence - Patient ED Disposition Is Patient to be Admitted: Transfer of Care - Disposition Referrals: [facility] [Outside] Tiffanie Martinez MD [Staff Provider] - Mckinley Cassidy MD [Staff Provider] - Mert Gonzalez MD [Staff Provider] - Disposition: Transfer of Care Disposition Time: 15:00 Condition: STABLE Prescriptions: Mupirocin 2% Ointment [Bactroban Ointment] 1 appl TP BID #1 tube Instructions: Wound Dehiscence (ED) Forms: [employer] (Uzbek) Print Language: TURKISH Patient Signed Over To: Neris Andino
--- NOTE | 2017-05-22 15:21 | ED PDOC ---
- Laboratory Results Result Diagrams: 05/22/17 15:40 05/22/17 15:40 - ECG O2 Sat by Pulse Oximetry: 99 (RA) Pulse Ox Interpretation: Normal Medical Decision Making Medical Decision Making: Patient endorsed to provider at 1500 pending ER workup, reassessment and final disposition. 1800 Labs and xray unremarkable. DW Dr Sanchez PMD and pt findings. Pt will be given contact info for plastic surgery for possible surgical repair of wound. Scribe Attestation Documented by Rosalba Robbins acting as a scribe for Neris Andino MD. Provider Attestation All medical record entries made by the Scribe were at my direction and personally dictated by me. I have reviewed the chart and agree that the record accurately reflects my personal performance of the history, physical exam, medical decision making, and the department course for this patient. I have also personally directed, reviewed, and agree with the discharge instructions and disposition. Disposition - Clinical Impression Clinical Impression: Wound dehiscence - POA Present On Arrival: None - Disposition Referrals: [facility] [Outside] Tiffanie Martinez MD [Staff Provider] - Mckinley Cassidy MD [Staff Provider] - Mert Gonzalez MD [Staff Provider] - Disposition: Routine/Home Disposition Time: 15:00 Condition: STABLE Prescriptions: Mupirocin 2% Ointment [Bactroban Ointment] 1 appl TP BID #1 tube Instructions: Wound Dehiscence (ED) Forms: [employer] (Pakistani) Print Language: [place] CITIZ[place]
[2017-05-22 15:50] LABS: BASO % 0.5 % (0.0-2.0); EOS # 0.2 K/uL (0.0-0.7); EOS % 2.2 % (0.0-4.0); HEMATOCRIT 37.2 % (34.0-47.0); LYMPH # 1.4 K/uL (1.0-4.3); LYMPH % 15.4 % (20.0-40.0); MEAN CELL VOLUME 88.3 fl (81.0-99.0); MEAN CORPUSCULAR HEMOGLOBIN 29.5 pg (27.0-31.0); MEAN CORPUSCULAR HGB CONC 33.4 g/dL (33.0-37.0); MEAN PLATELET VOLUME 8.3 fl (7.2-11.7); MONO # 0.7 K/uL (0.0-0.8); MONO % 8.2 % (0.0-10.0); NEUT # 6.6 K/uL (1.8-7.0); NEUT % 73.7 % (50.0-75.0); NRBC % 0.1 % (0.0-0.0); RED CELL DISTRIBUTION WIDTH 15.4 % (11.5-14.5)
--- NOTE | 2017-05-22 16:03 | RAD ---
PROCEDURE: Left Knee Radiographs. HISTORY: Pain. COMPARISON: None. FINDINGS: BONES: Normal. No fracture. JOINTS: Status post total knee replacement. No evidence of prosthesis loosening. JOINT EFFUSION: None. OTHER FINDINGS: None. IMPRESSION: Left TKR.
[2017-05-22 16:05] LABS: WHITE BLOOD COUNT 8.9 K/uL (4.8-10.8)
[2017-05-22 16:06] LABS: ALB/GLOB RATIO 1.3 (1.0-2.1); ALKALINE PHOSPHATASE 74 U/L (38-126); ALT/SGPT 22 U/L (9-52); AST/SGOT 18 U/L (14-36); BILIRUBIN,TOTAL 0.5 mg/dl (0.2-1.3); BLOOD UREA NITROGEN 21 mg/dl (7-17); CALCIUM 9.6 mg/dL (8.4-10.2); CARBON DIOXIDE 26 mmol/L (22-30); CHLORIDE 104 mmol/L (98-107); GFR AFRICAN-AMERICAN > 60; GLUCOSE,RANDOM 101 mg/dL (65-105); SODIUM 145 mmol/l (132-148); TOTAL PROTEIN 7.1 G/DL (6.3-8.2)
[2017-05-22 18:31] VITALS: BP 129/71; PULSE 74; TEMP 98.3
[2017-05-22 21:18] VITALS: O2SAT 99
== END 2017-05-22 18:30 | disposition home or self-care (01) ==
LOC: H.ER 14:30
DX: T81.31XA Disruption of external operation (surgical) wound, not elsewhere classified, initial encounter (principal)

== ENCOUNTER 2018-05-07 17:12 | Emergency (ER) | payer MEDICARE, MEDICAID ==
[2018-05-07 17:12] VITALS: BMI 31.1
[2018-05-07 17:26] VITALS: RESP 18
[2018-05-07 19:23] LABS: BASO % 0.4 % (0.0-2.0); EOS # 0.3 K/uL (0.0-0.7); EOS % 3.8 % (0.0-4.0); LYMPH # 1.7 K/uL (1.0-4.3); LYMPH % 20.7 % (20.0-40.0); MEAN CELL VOLUME 89.6 fl (81.0-99.0); MEAN CORPUSCULAR HGB CONC 33.5 g/dL (33.0-37.0); MEAN PLATELET VOLUME 9.3 fl (7.2-11.7); MONO # 0.6 K/uL (0.0-0.8); MONO % 6.9 % (0.0-10.0); NEUT # 5.7 K/uL (1.8-7.0); NEUT % 68.2 % (50.0-75.0); NRBC % 0.1 % (0.0-0.0); RBC 4.34 Mil/uL (3.80-5.20); RED CELL DISTRIBUTION WIDTH 14.3 % (11.5-14.5); WHITE BLOOD COUNT 8.4 K/uL (4.8-10.8)
[2018-05-07 19:29] LABS: BLOOD UREA NITROGEN 16 mg/dl (7-17); CALCIUM 9.4 mg/dL (8.4-10.2); GFR NON-AFRICAN AMERICAN > 60; LIPASE 57 U/L (23-300)
--- NOTE | 2018-05-07 19:51 | ED PDOC ---
HPI: Chest Pain Time Seen by Provider: 05/07/18 17:57 Chief Complaint (Nursing): Abdominal Pain Chief Complaint (Provider): Abdominal Pain History Per: Patient History/Exam Limitations: no limitations Onset/Duration Of Symptoms: Days (x1) Current Symptoms Are (Timing): Still Present Additional Complaint(s): 73 year old female with pmHx of HTN, anxiety, and arthritis, arrives to ED with a complaint of non-radiating left-sided rib pain that exacerbates with movements. She denies any fever, chills, chest pain, shortness of breath, cough , urinary complaints, diarrhea, or similar symptoms in past. Patient reports taking Naproxen and Percocet for relief, in which, she usually takes for her chronic knee pain. PMD: none provided Past Medical History Reviewed: Historical Data Vital Signs: Last Vital Signs Temp 98.2 F 05/07/18 17:25 Pulse 60 05/07/18 17:25 Resp 18 05/07/18 17:25 BP 128/73 05/07/18 17:25 Pulse Ox 97 05/07/18 22:48 - Medical History PMH: Anxiety, Arthritis, Bipolar Disorder, Dementia, Depression, Gastritis, Osteoporosis Denies: Asthma, Atrial Fibrillation, CHF, COPD, Diabetes, HIV, HTN, Hypercholesterolemia, Chronic Kidney Disease, Seizures - Surgical History Surgical History: Denies: CABG, Pacemaker - Family History Family History: States: Unknown Family Hx Denies: CAD - Home Medications Home Medications: Ambulatory Orders Medication Instructions Recorded Ergocalciferol (Vitamin D2) 50,000 iu PO QWK 05/02/16 [Vitamin D2] Omeprazole 40 mg PO DAILY 05/02/16 Oxybutynin [Ditropan Tab] 5 mg PO DAILY 05/02/16 Rivastigmine 9.5 mg/24 hr [Exelon 9.5 mg TD DAILY 05/02/16 9.5 mg/24 hr Patch] Zolpidem [Ambien] 5 mg PO HS 05/02/16 Clonazepam [Klonopin] 1 mg PO DAILY 12/08/16 Docusate [Colace] 100 mg PO BID 12/08/16 Ferrous Sulfate [Feosol] 325 mg PO DAILY 12/08/16 Acetaminophen/Oxycodone Hydr 1 tab PO Q6H PRN 12/29/16 [Percocet 10/325 mg Tab] Calcium Carbonate/Vitamin D3 1 each PO DAILY 12/29/16 [Calcium 500 + Vit D Caplet] Gabapentin 300 mg PO TID #21 capsule 05/07/18 Methylprednisolone [Medrol Dose 4 mg PO ASDIR #21 mg 05/07/18 Pack (21 tabs)] - Allergies Allergies/Adverse Reactions: Allergies Allergy/AdvReac Type Severity Reaction Status Date / Time No Known Allergies Allergy Verified 05/07/18 17:25 FERNANDO Risk Score for UA/NSTEMI - FERNANDO Risk Score Age > 64: NO 3 or more CAD Risk Factors: NO Known CAD (Stenosis greater than 50%): NO Aspirin use in past 7 days: NO Severe Angina: NO EKG ST changes greater than 0.5mm: NO Positive Cardiac Marker: NO FERNANDO Score: 0 Risk %: 5% Wells Criteria for PE - Wells Criteria for Pulmonary Embolism Clinical Signs and Symptoms of DVT: No P.E is #1 Diagnosis, or Equally Likely: No Heart Rate >100: No Immobilization at least 3 days;Surgery previous 4 weeks: No Previous, objectively diagnosed PE or DVT: No Hemoptysis: No Malignancy w/treatment within 6 months, or palliative: No Total Score: 0 Review of Systems ROS Statement: Except As Marked, All Systems Reviewed And Found Negative Constitutional: Negative for: Fever, Chills Cardiovascular: Positive for: Other (left-sided rib). Negative for: Chest Pain Respiratory: Negative for: Cough, Shortness of Breath Gastrointestinal: Negative for: Diarrhea Genitourinary Female: Negative for: Dysuria, Frequency, Incontinence, Hematuria Physical Exam - Reviewed Nursing Documentation Reviewed: Yes Vital Signs Reviewed: Yes - Physical Exam Appears: Positive for: Non-toxic, No Acute Distress Head Exam: Positive for: ATRAUMATIC, NORMAL INSPECTION, NORMOCEPHALIC Skin: Positive for: Normal Color Eye Exam: Positive for: Normal appearance ENT: Positive for: Normal ENT Inspection Neck: Positive for: Normal Cardiovascular/Chest: Positive for: Regular Rate, Rhythm, Other (left chest wall tenderness on palpation). Negative for: Chest Non Tender (or deformity, erythema, rash), Murmur Respiratory: Positive for: Normal Breath Sounds. Negative for: Respiratory Distress Gastrointestinal/Abdominal: Positive for: Normal Exam, Soft. Negative for: Tenderness Extremity: Positive for: Normal ROM (upper/lower). Negative for: Pedal Edema ( bilateral) Neurologic/Psych: Positive for: Alert, Oriented. Negative for: Motor/Sensory Deficits - Laboratory Results Result Diagrams: 05/07/18 19:10 05/07/18 19:10 - ECG O2 Sat by Pulse Oximetry: 97 (RA) Pulse Ox Interpretation: Normal - Progress Re-evaluation Time: 23:02 Condition: Re-examined, Improved Medical Decision Making Medical Decision Making: Initial Impression: Left chest/rib pain Differential Diagnosis: musculoskeletal pain, radiculopathy r/o pancreatitis, PE , shingles Initial Plan: * EKG * Labs * CXR * Toradol 15mg IVP * CTA chest Time: 4 --CTA chest FINDINGS: Pulmonary arteries: No filling defects within the central, segmental, or visualized subsegmental pulmonary arteries. Aorta: The aorta demonstrates mild atherosclerotic calcification. No thoracic aortic aneurysm. Lungs: The central airways are patent. Subpleural reticular opacities within the dependent aspect of the lower lobes may represent subsegmental atelectasis or scarring. Mosaic attenuation suggestive of mild bibasilar air-trapping. No focal consolidation. Pleural space: No pneumothorax, pleural effusion, or pleural thickening. Heart: Left atrial enlargement. No significant pericardial effusion. No evidence of RV dysfunction. Bones/joints: Osseous demineralization. Exaggerated thoracic kyphosis. No acute fracture. No dislocation. Soft tissues: Normal. Lymph nodes: Normal. No enlarged lymph nodes. IMPRESSION: 1. No pulmonary embolism. 2. Bibasilar atelectasis or scarring. Superimposed mosaic attenuation is suggestive of subsegmental air trapping and small airways disease. 3. Left atrial enlargement. Scribe Attestation: Documented by Renee Prabhakar, acting as a scribe for Ced Neal MD. Provider Scribe Attestation: All medical record entries made by the [employer] were at my direction and personally dictated by me. I have reviewed the chart and agree that the record accurately reflects my personal performance of the history, physical exam, medical decision making, and the department course for this patient. I have also personally directed, reviewed, and agree with the discharge instructions and disposition. Disposition - Clinical Impression Clinical Impression: Rib pain on left side, Neuropathic pain, Chest pain - Patient ED Disposition Is Patient to be Admitted: No Doctor Will See Patient In The: Office Counseled Patient/Family Regarding: Studies Performed, Diagnosis, Need For Followup - Disposition Referrals: Yosvany Sanchez MD [Staff Provider] - Disposition: Routine/Home Disposition Time: 23:03 Condition: GOOD Additional Instructions: TRAVON REINOSO, thank you for letting us take care of you today. Your provider was Ced Neal MD and you were treated for LT SIDE PAIN. The emergency medical care you received today was directed at your acute symptoms. If you were prescribed any medication, please fill it and take as directed. It may take several days for your symptoms to resolve. Return to the Emergency Department if your symptoms worsen, do not improve, or if you have any other problems. Please contact your doctor or call one of the physicians/clinics you have been referred to that are listed on the Patient Visit Information form that is included in your discharge packet. Bring any paperwork you were given at discharge with you along with any medications you are taking to your follow up visit. Our treatment cannot replace ongoing medical care by a primary care provider outside of the emergency department. Thank you for allowing the [facility] team to be part of your care today. If you had an X-Ray or CT scan: A Radiologist will review the ED reading if any change in treatment is needed we will contact you. If you had a blood, urine, or wound culture: It will take several days for the results, if any change in treatment is needed we will contact you. If you had an STI test: It will take 48 hours for the results. Please call after 1 week if you have not heard back. Prescriptions: Gabapentin 300 mg PO TID #21 capsule Methylprednisolone [Medrol Dose Pack (21 tabs)] 4 mg PO ASDIR #21 mg Instructions: Chest Pain (DC), Neuropathic Pain
[2018-05-07] MEDS ORDERED: Sodium Chloride 0.9% 50 ML IV ONE (21:52)
[2018-05-07] MEDS ORDERED: Iodixanol 320 MG/ML 100 ML BOTTLE IV ONE (21:52)
[2018-05-07 23:59] VITALS: BP 122/70; PULSE 64; TEMP 98; O2SAT 99
--- NOTE | 2018-05-08 10:51 | RAD ---
Date of service: 05/07/2018 HISTORY: chest pain COMPARISON: 06/02/2017 TECHNIQUE: Chest PA and lateral FINDINGS: LUNGS: No focal infiltrate. Mild chronic interstitial changes and bibasilar subsegmental atelectasis. PLEURA: No significant pleural effusion identified. No pneumothorax apparent. CARDIOVASCULAR: No change. OSSEOUS STRUCTURES: No interval change. No acute compression fracture. VISUALIZED UPPER ABDOMEN: Normal. OTHER FINDINGS: None. IMPRESSION: No focal infiltrate or CHF. Mild interstitial change and bibasilar subsegmental atelectasis.
--- NOTE | 2018-05-08 13:38 | CT ---
Date of service: 05/07/2018 PROCEDURE: CT Chest with contrast (Pulmonary Angiogram) HISTORY: chest pain COMPARISON: None available. TECHNIQUE: Axial computed tomography images were obtained of the chest in the pulmonary arterial phase of enhancement. Coronal and sagittal reformatted images were created and reviewed. Intravenous contrast dose: 95 milliliters Radiation dose: Total exam DLP = 303 mGy-cm. This CT exam was performed using one or more of the following dose reduction techniques: Automated exposure control, adjustment of the mA and/or kV according to patient size, and/or use of iterative reconstruction technique. FINDINGS: PULMONARY ARTERIES: Unremarkable. No pulmonary embolism. AORTA: No intimal flap is seen in the aorta although injection timing limits evaluation. Minor aneurysmal dilatation of the aorta is noted. Thoracic inlet is unremarkable. LUNGS: Mild posterior dependent subsegmental atelectasis and scarring are noted, greater medially at the right lung base. In addition there is mild nonspecific mosaic non geographic ground-glass, slightly greater in the dependent regions which may also suggest some elements of air trapping. No segmental alveolar infiltrate to suggest pneumonia is noted. PLEURAL SPACES: Unremarkable. No effusion or pneumothorax. HEART: Heart is mildly enlarged with left atrial enlargement. Pulmonary arteries are mildly prominent. An element of pulmonary artery hypertension not excluded. LYMPH NODES: No lymphadenopathy. BONES, CHEST WALL: Degenerative changes are seen in the spine. No fracture is seen. OTHER FINDINGS: Unremarkable. IMPRESSION: No CT scan evidence of pulmonary embolism. Mild nonspecific subsegmental atelectasis, scarring, and mosaic pattern in the lungs. This agrees with preliminary report provided by the on-call radiologist. .
--- NOTE | 2018-05-08 17:31 | CARD ---
APPROVED REPORT Date of service: 05/07/2018 <Conclusion> Sinus bradycardia Moderate voltage criteria for LVH, may be normal variant Borderline ECG
== END 2018-05-07 23:20 | disposition home or self-care (01) ==
LOC: H.ER 17:12
DX: M79.2 Neuralgia and neuritis, unspecified (principal); F03.90 Unspecified dementia, unspecified severity, without behavioral disturbance, psychotic disturbance, mood disturbance, and anxiety; F31.9 Bipolar disorder, unspecified; G89.29 Other chronic pain; I11.9 Hypertensive heart disease without heart failure; M81.0 Age-related osteoporosis without current pathological fracture
CPT/HCPCS: 71046; 71275; 80048; 83690; 84484; 85025; 85378; 93005; 96374; 99284; J1885; Q9967